=== PATIENT | female | born 1980 | race Caucasian/White ===

== ENCOUNTER 2016-05-24 23:21 | Emergency (ER) | payer BC ==
[2016-05-25] MEDS ORDERED: HYDROmorphone 1 MG/ML 1 ML SYRINGE IM STA (00:47)
[2016-05-25] MEDS ORDERED: KETOROLAC 60 MG/2 ML VIAL IM STA (00:47)
--- NOTE | 2016-05-25 00:50 | ED ---
General Adult HPI - General Chief complaint: Extremity Problem,Nontraumatic Stated complaint: Shoulder Pain Time Seen by Provider: 05/25/16 00:10 Source: patient, RN notes reviewed Mode of arrival: ambulatory Limitations: no limitations - History of Present Illness Initial comments: Patient is a pleasant 35-year-old female presenting to the emergency department complaining of left shoulder discomfort. Onset was around 2 or 3 weeks ago. Patient awoke with symptoms. Patient states symptoms have gotten worse the past day or 2. Discomfort greatly increases with movement. Discomfort is the left posterior shoulder, more specifically the region between the neck in the shoulder. No chest pain. No difficulty in breathing. No trauma. No history of chronic discomfort in this area. - Related Data Home Medications Medication Instructions Recorded Confirmed Phentermine HCl [Adipex-P] 37.5 mg PO QAM 04/19/16 05/24/16 Previous Rx's Medication Instructions Recorded Dexamethasone 0.75 mg PO DIRECTED #12 tab 04/19/16 Hydrocodone/Acetaminophen [[place] 2 each PO Q6HR PRN #20 tab 05/25/16 5-325] Ibuprofen [Motrin] 600 mg PO Q6HR PRN #20 tab 05/25/16 methylPREDNISolone Dose Pack 24 mg PO DAILY #1 tab 05/25/16 [Medrol Dose Pack] Allergies Allergy/AdvReac Type Severity Reaction Status Date / Time No Known Allergies Allergy Verified 05/24/16 23:37 Review of Systems ROS Statement: Those systems with pertinent positive or pertinent negative responses have been documented in the HPI. ROS Other: All systems not noted in ROS Statement are negative. Constitutional: Denies: fever Eyes: Denies: eye pain ENT: Denies: ear pain Respiratory: Denies: cough, dyspnea Cardiovascular: Denies: chest pain Endocrine: Denies: fatigue Gastrointestinal: Denies: abdominal pain Genitourinary: Denies: dysuria Musculoskeletal: Reports: back pain (Left trapezius) Skin: Denies: rash Neurological: Denies: weakness Past Medical History Past Medical History: Asthma History of Any Multi-Drug Resistant Organisms: None Reported Past Surgical History: Section, Tubal Ligation Past Anesthesia/Blood Transfusion Reactions: No Reported Reaction Past Psychological History: Depression Smoking Status: Current every day smoker Past Alcohol Use History: Occasional Past Drug Use History: None Reported General Exam Limitations: no limitations General appearance: alert, in no apparent distress Head exam: Present: atraumatic Eye exam: Present: normal appearance, PERRL ENT exam: Present: normal oropharynx Neck exam: Present: normal inspection. Absent: tenderness Respiratory exam: Present: normal lung sounds bilaterally Cardiovascular Exam: Present: regular rate, normal rhythm Expanded Peripheral pulses: 2+: Radial (R), Radial (L), Posterior Tibialis (R), Posterior Tibialis (L) GI/Abdominal exam: Present: soft. Absent: tenderness Extremities exam: Present: normal inspection, full ROM, other (No pain with passive range of motion. Significant pain with active range of motion of the left shoulder.). Absent: tenderness Back exam: Present: tenderness (Tenderness and fullness left trapezius region) Neurological exam: Present: alert. Absent: motor sensory deficit Psychiatric exam: Present: normal affect, normal mood Skin exam: Absent: rash Course Vital Signs 05/24/16 05/25/16 23:33 00:18 Temperature 99.8 F H Pulse Rate 89 80 Respiratory 16 18 Rate Blood Pressure 144/84 131/76 O2 Sat by Pulse 99 98 Oximetry EKG Findings - EKG Comments: EKG Findings:: Normal sinus rhythm 71. Normal intervals. Normal axis. Normal QRS. Normal ST-T. Medical Decision Making - Medical Decision Making Patient reexamined and resting comfortably at bedside. Patient states discomfort has improved, discomfort is now 5/10. Patient does have some nausea. Case was discussed in detail with Dr. Zeng with orthopedics will follow-up with the patient on Thursday. Patient and family are updated. He also recommended steroids. - Radiology Data Radiology results: report reviewed (Computed tomography scan shows C4 5 and C5 6 disc herniation with mild impingement on the spinal canal. There may be some neural foraminal impingement.) Disposition Clinical Impression: Cervical disc herniation Disposition: HOME SELF-CARE Condition: Stable Instructions: Cervical Disc Herniation (ED) Additional Instructions: Please follow-up with Dr. Zeng on Thursday. Return for weakness, loss of sensation, increased pain, worsening symptoms or other concerns. Prescriptions: Hydrocodone/Acetaminophen [[place] 5-325] 2 each PO Q6HR PRN #20 tab PRN Reason: Pain Ibuprofen [Motrin] 600 mg PO Q6HR PRN #20 tab PRN Reason: Pain methylPREDNISolone Dose Pack [Medrol Dose Pack] 24 mg PO DAILY #1 tab Referrals: Sara King MD [Primary Care Provider] - 1-2 days Reji Zeng DO [Doctor of Osteopathic Medicine] - 1-2 days
--- NOTE | 2016-05-25 01:28 | XR ---
EXAMINATION TYPE: XR chest 2V DATE OF EXAM: 05/25/2016 1:20 AM COMPARISON: 09/07/2012 HISTORY: Neck pain and shoulder pain. TECHNIQUE: Frontal and lateral views of the chest are obtained. FINDINGS: Heart and mediastinum are normal. Lungs are clear. The diaphragm is normal. Bony thorax an d soft tissues appear normal. IMPRESSION: Normal chest. No change.
--- NOTE | 2016-05-25 01:39 | CT ---
EXAMINATION TYPE: CT cervical spine wo con DATE OF EXAM: 05/25/2016 1:20 AM COMPARISON: NONE HISTORY: left neck pain CT DLP: 431.90 mGycm Automated exposure control for dose reduction was used. TECHNIQUE: CT scan of the cervical spine is obtained without contrast, axial images are obtained, sa gittal and coronal reformatted images are also reviewed. FINDINGS: The cervical vertebra have fairly normal alignment. There is mild spurring of the endplates from C4 t o C7. Facet joints are intact. Skull base is intact. There is no evidence of a fracture. Posterior el ements are intact. There is posterior central and left-sided C4-5 and C5-6 disc herniation. IMPRESSION: No fracture. Mild degenerative disc hypertrophic spurring. There is a posterior C4-5 cervical disc herniation with mild impingement on the spinal canal. This projects slightly to the left side on the axial images and may be clinically significant. There is probably some neural foraminal impingement. There is similar significant posterior left-sided C5-6 cervical disc herniation with neural foraminal impingement. MR scan is recommended for confirmation if clinically indicated.
[2016-05-25] MEDS ORDERED: ONDANSETRON 4 MG ODT STARTER PACK 2 TAB BTL PO STA (02:14)
[2016-05-25] MEDS ORDERED: predniSONE 50 MG TAB PO STA (02:17)
[2016-05-25 03:41] VITALS: BP 120/78; PULSE 88; RESP 20; TEMP 98
== END 2016-05-25 02:38 | disposition home or self-care (01) ==
LOC: EC 23:21
DX: M50.01 Cervical disc disorder with myelopathy, high cervical region (principal); F17.200 Nicotine dependence, unspecified, uncomplicated; Z79.52 Long term (current) use of systemic steroids; Z79.899 Other long term (current) drug therapy
CPT/HCPCS: 99284; 96372 ×2; 71020; 72125; J1885; J1170

== ENCOUNTER 2016-06-20 15:53 | Emergency (ER) | payer BC ==
[2016-06-20] MEDS ORDERED: KETOROLAC 60 MG/2 ML VIAL IM STA (16:24)
[2016-06-20] MEDS ORDERED: ORPHENADRINE 30 MG/ML 2 ML VIAL IM STA (16:24)
--- NOTE | 2016-06-20 16:24 | ED ---
General Adult HPI - General Chief complaint: Headache Stated complaint: Shoulder Pain (Left) Time Seen by Provider: 06/20/16 16:08 Source: patient, RN notes reviewed Mode of arrival: ambulatory Limitations: no limitations - History of Present Illness Initial comments: Patient is a 35-year-old female presents to the emergency room for evaluation of left shoulder pain. Patient states that she has been having the shoulder pain on and off for the past 2 months. Patient states she was here about a month ago and was told that she had a herniated disc in her cervical spine. Patient states she was supposed follow-up with Dr. Zeng but never did. Patient states the pain did go away for a few weeks but then came back the past few days and has gotten worse over the past day. Patient states the pain radiates on the left side of her neck up to the base of her skull causing her to have a headache. Patient denies changes in vision. Patient states that a decrease in appetite but denies nausea. Patient states she feels slightly dizzy. Patient denies any fall or recent injury to her shoulder or neck. Patient states she's having some tingling in her left arm. Patient denies shortness of breath. Patient states that is 7 out of 10 constant throbbing pain is worse with movement. Patient states been taking ibuprofen with no relief of symptoms. 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 Patient states her new job has been aggravating her pain. - Related Data Home Medications Medication Instructions Recorded Confirmed Albuterol Inhaler [Ventolin Hfa 1 - 2 puff INHALATION RT-Q6H PRN 06/20/16 Inhaler] Ibuprofen [Motrin] 200 - 400 mg PO Q6HR PRN 06/20/16 06/20/16 Previous Rx's Medication Instructions Recorded Ibuprofen [Motrin] 800 mg PO Q6HR PRN #20 tab 06/20/16 Orphenadrine [Norflex] 100 mg PO Q12H PRN #12 tablet.er 06/20/16 Allergies Allergy/AdvReac Type Severity Reaction Status Date / Time No Known Allergies Allergy Verified 06/20/16 16:42 Review of Systems ROS Statement: Those systems with pertinent positive or pertinent negative responses have been documented in the HPI. ROS Other: All systems not noted in ROS Statement are negative. Past Medical History Past Medical History: Asthma History of Any Multi-Drug Resistant Organisms: None Reported Past Surgical History: Section, Tubal Ligation Past Anesthesia/Blood Transfusion Reactions: No Reported Reaction Past Psychological History: Depression Smoking Status: Current every day smoker Past Alcohol Use History: None Reported Past Drug Use History: None Reported General Exam - General Exam Comments Initial Comments: Sitting in exam room in no acute distress. Limitations: no limitations General appearance: alert, in no apparent distress Head exam: Present: atraumatic, normocephalic, normal inspection Eye exam: Present: normal appearance ENT exam: Present: normal exam Neck exam: Present: normal inspection, tenderness (Left paracervical tenderness on palpation), full ROM Respiratory exam: Present: normal lung sounds bilaterally. Absent: respiratory distress Cardiovascular Exam: Present: regular rate, normal rhythm, normal heart sounds Left Shoulder Exam: Present: full ROM, tenderness (Posterior shoulder). Absent: swelling, ecchymosis, deformity Neuro motor exam: Present: wrist extension intact, thumb opposition intact, thumb IP flexion intact, thumb adduction intact, fingers 2-5 abduction intact Vascular: Present: normal capillary refill (Capillary refill less than 2 seconds ), radial pulse (2+), ulnar pulse (2+) Back exam: Present: normal inspection Neurological exam: Present: alert, oriented X3, CN II-XII intact, normal gait Psychiatric exam: Present: normal affect, normal mood Skin exam: Present: warm, dry, intact, normal color. Absent: rash Course Vital Signs 06/20/16 15:56 Temperature 98.8 F Pulse Rate 78 Respiratory 18 Rate Blood Pressure 187/84 O2 Sat by Pulse 98 Oximetry EKG Findings - EKG Comments: EKG Findings:: Normal sinus rhythm, ventricular rate 60 bpm, HI interval 120 ms , QRS duration 84 ms, QT/QTc 436/436 ms, no ST elevations Medical Decision Making - Medical Decision Making Patient a 35-year-old female presents emergency room for evaluation of left- sided neck and shoulder pain. Please see the pain does radiate to her chest. EKG shows no acute findings. Patient denies any shortness of breath. Patient' s symptoms related to herniated disc noted on computed tomography scan in April. Will place patient on ibuprofen and muscle relaxers and have her follow-up with Dr. Zeng. Patient states she understands everything that was discussed with her. Return parameters discussed. Case discussed with Dr. Betancourt. Disposition Clinical Impression: Cervical disc herniation Disposition: HOME SELF-CARE Condition: Good Additional Instructions: Please follow-up with Dr. Zeng. Take medications as needed. If any new symptom arises or symptoms worsen, return to ER as soon as possible. Prescriptions: Ibuprofen [Motrin] 800 mg PO Q6HR PRN #20 tab PRN Reason: Pain Orphenadrine [Norflex] 100 mg PO Q12H PRN #12 tablet.er PRN Reason: Pain Referrals: Sara King MD [Primary Care Provider] - 1-2 days Reji Zeng DO [Doctor of Osteopathic Medicine] - 1-2 days Time of Disposition: 16:36
[2016-06-20 17:10] VITALS: BP 145/81; PULSE 75; RESP 16; TEMP 98.1
== END 2016-06-20 17:11 | disposition home or self-care (01) ==
LOC: EC 15:53
DX: M50.20 Other cervical disc displacement, unspecified cervical region (principal); R51 Headache; M25.512 Pain in left shoulder; R42 Dizziness and giddiness; J45.909 Unspecified asthma, uncomplicated; F17.200 Nicotine dependence, unspecified, uncomplicated
CPT/HCPCS: 93005; 99284; 96372 ×2; J2360; J1885

== ENCOUNTER 2016-09-12 22:58 | Emergency (ER) | payer BC ==
[2016-09-12 23:03] VITALS: RESP 18
[2016-09-12 23:37] LABS: Basophils # (A) 0.1 k/uL (0-0.2); Basophils % (A) 1 %; CH 27.1; CHCM 32.1; Eosinophils # (A) 0.3 k/uL (0-0.7); Eosinophils % (A) 3 %; HCT 37.7 % (34.0-46.0); HDW 2.49; HGB 12.3 gm/dL (11.4-16.0); Luc # (Auto) 0.25; Luc % (Auto) 2; Lymphocytes # (A) 2.9 k/uL (1.0-4.8); Lymphocytes % (A) 22 %; MCH 27.5 pg (25.0-35.0); MCHC 32.5 g/dL (31.0-37.0); MCV 84.6 fL (80.0-100.0); Mean Platelet Volume 7.8; Monocytes # (A) 0.7 k/uL (0-1.0); Monocytes % (A) 5 %; Neutrophils # (A) 8.9 k/uL (1.3-7.7); Neutrophils % (A) 68 %; RBC 4.46 m/uL (3.80-5.40); RDW 15.7 % (11.5-15.5); WBC 13.1 k/uL (3.8-10.6); WBC (Perox) 13.47
[2016-09-12 23:43] LABS: Appearance,Urine Clear (Clear); Bilirubin,Urine Negative (Negative); Glucose,Urine (UA) Negative (Negative); Ketones,Urine Negative (Negative); Leukocyte Esterase,Urine Negative (Negative); Nitrite,Urine Negative (Negative); PH, Urine 5.5 (5.0-8.0); Protein,Urine Negative (Negative); Specific Gravity,Urine 1.017 (1.001-1.035); UA Billing (MACRO vs. MICRO) CHEM; Urobilinogen,Urine <2.0 mg/dL (<2.0)
[2016-09-12 23:48] LABS: ALT 24 U/L (9-52); AST 17 U/L (14-36); Alkaline Phosphatase 38 U/L (38-126); Amylase 39 U/L (30-110); Anion Gap 10 mmol/L; Blood Urea Nitrogen 10 mg/dL (7-17); Calcium 9.3 mg/dL (8.4-10.2); Carbon Dioxide 26 mmol/L (22-30); Chloride 104 mmol/L (98-107); Glucose 74 mg/dL (74-99); Non-African American GFR(MDRD) >60 (>60 ml/min/1.73 sqM); Potassium 3.5 mmol/L (3.5-5.1); Sodium 140 mmol/L (137-145); Total Bilirubin 0.4 mg/dL (0.2-1.3); Total Protein 7.2 g/dL (6.3-8.2)
--- NOTE | 2016-09-12 23:56 | XR ---
EXAM: XR Abdomen, 1 View CLINICAL HISTORY: Reason: abdominal pain TECHNIQUE: Frontal supine view of the abdomen/pelvis. COMPARISON: CT abdomen/pelvis on 01/11/2016 FINDINGS: Abdomen: Nonobstructive bowel gas pattern. No free air. Cholecystectomy clips in the right upper quadrant. Pelvis is not included in the [id number]. Bones: Normal. Soft tissues: Normal. Lower chest: Normal. IMPRESSION: No acute disease.
[2016-09-13] MEDS ORDERED: MORPHINE SULFATE 4 MG/ML SYRINGE IV STA (01:31)
[2016-09-13] MEDS ORDERED: ONDANSETRON 4 MG/2 ML VIAL IVP STA (01:32)
--- NOTE | 2016-09-13 01:58 | CT ---
EXAM: CT Abdomen and Pelvis Without Intravenous Contrast CLINICAL HISTORY: Reason: Patient presents with abdominal pain. Prior on pacs history of cholecystectomy. TECHNIQUE: Axial computed tomography images of the abdomen and pelvis without intravenous contrast. CTDI is 12.0 mGy and DLP is 538.40 mGy-cm This CT exam was performed using one or more of the following dose reduction techniques: automated exposure control, adjustment of the mA and/or kV according to patient size, and/or use of iterative reconstruction technique. COMPARISON: CT abdomen/pelvis on 01/11/2016 FINDINGS: Evaluation of solid organs somewhat limited without IV contrast. Liver: No focal lesion. Spleen: No focal lesion. Gallbladder: Status post cholecystectomy. Pancreas: No mass. Adrenal glands: No mass. Kidneys: No hydronephrosis or stone. Bowel: Normal appendix. No bowel obstruction or inflammation. Urinary bladder: No wall thickening or mass. Reproductive organs: Unremarkable. Muscles: No mass. Subcutaneous tissues: Small fat-containing periumbilical hernia. Peritoneal space: No free fluid. Phleboliths in the pelvis. Lymph nodes: No lymphadenopathy. Vessels: No aneurysm. Bones: Normal. No acute fracture or bony lesion. Lung bases: Normal. IMPRESSION: No acute abnormality in the abdomen or pelvis. Small fat-containing periumbilical hernia.
--- NOTE | 2016-09-13 02:06 | ED ---
Abdominal Pain HPI - General Chief Complaint: Abdominal Pain Stated Complaint: abdominal Pain Time Seen by Provider: 09/12/16 23:19 Source: patient Mode of arrival: ambulatory Limitations: no limitations - Related Data Home Medications Medication Instructions Recorded Confirmed Ibuprofen [Motrin] 400 mg PO BID PRN 06/20/16 09/12/16 Levofloxacin [Levaquin] 500 mg PO HS 09/12/16 09/12/16 Phentermine HCl [Adipex-P] 18.75 mg PO QAM 09/12/16 09/12/16 Zolpidem [Ambien] 10 mg PO HS PRN 09/12/16 09/12/16 Previous Rx's Medication Instructions Recorded Dicyclomine [Bentyl] 20 mg PO QID #15 tablet 09/13/16 Famotidine [Pepcid] 20 mg PO DAILY #14 tablet 09/13/16 Allergies Allergy/AdvReac Type Severity Reaction Status Date / Time No Known Allergies Allergy Verified 09/12/16 23:22 Review of Systems ROS Statement: Those systems with pertinent positive or pertinent negative responses have been documented in the HPI. ROS Other: All systems not noted in ROS Statement are negative. Past Medical History Past Medical History: Asthma History of Any Multi-Drug Resistant Organisms: None Reported Past Surgical History: Section, Tubal Ligation Past Anesthesia/Blood Transfusion Reactions: No Reported Reaction Past Psychological History: Depression Smoking Status: Current every day smoker Past Alcohol Use History: None Reported Past Drug Use History: None Reported General Exam Limitations: no limitations Course Vital Signs 09/12/16 09/13/16 09/13/16 23:01 00:38 01:29 Temperature 99.8 F H 98.6 F 99.2 F Pulse Rate 92 82 83 Respiratory 18 18 18 Rate Blood Pressure 161/86 140/74 153/96 O2 Sat by Pulse 100 99 100 Oximetry Medical Decision Making - Lab Data Result diagrams: 09/12/16 23:14 09/12/16 23:14 Lab Results 09/12/16 09/12/16 09/12/16 Range/Units 23:14 23:14 23:14 WBC 13.1 H (3.8-10.6) k/uL RBC 4.46 (3.80-5.40) m/uL Hgb 12.3 (11.4-16.0) gm/dL Hct 37.7 (34.0-46.0) % MCV 84.6 (80.0-100.0) fL MCH 27.5 (25.0-35.0) pg MCHC 32.5 (31.0-37.0) g/dL RDW 15.7 H (11.5-15.5) % Plt Count 269 (150-450) k/uL Neutrophils % 68 % Lymphocytes % 22 % Monocytes % 5 % Eosinophils % 3 % Basophils % 1 % Neutrophils # 8.9 H (1.3-7.7) k/uL Lymphocytes # 2.9 (1.0-4.8) k/uL Monocytes # 0.7 (0-1.0) k/uL Eosinophils # 0.3 (0-0.7) k/uL Basophils # 0.1 (0-0.2) k/uL Sodium 140 (137-145) mmol/L Potassium 3.5 (3.5-5.1) mmol/L Chloride 104 (98-107) mmol/L Carbon Dioxide 26 (22-30) mmol/L Anion Gap 10 mmol/L BUN 10 (7-17) mg/dL Creatinine 0.90 (0.52-1.04) mg/dL Est GFR (MDRD) Af Amer >60 (>60 ml/min/1.73 sqM) Est GFR (MDRD) Non-Af >60 (>60 ml/min/1.73 sqM) Glucose 74 (74-99) mg/dL Calcium 9.3 (8.4-10.2) mg/dL Total Bilirubin 0.4 (0.2-1.3) mg/dL AST 17 (14-36) U/L ALT 24 (9-52) U/L Alkaline Phosphatase 38 (38-126) U/L Total Protein 7.2 (6.3-8.2) g/dL Albumin 4.3 (3.5-5.0) g/dL Amylase 39 (30-110) U/L Lipase 37 (23-300) U/L Urine Color Urine Appearance (Clear) Urine pH (5.0-8.0) Ur Specific [place] (1.001-1.035) Urine Protein (Negative) Urine Glucose (UA) (Negative) Urine Ketones (Negative) Urine Blood (Negative) Urine Nitrite (Negative) Urine Bilirubin (Negative) Urine Urobilinogen (<2.0) mg/dL Ur Leukocyte Esterase (Negative) Urine HCG, Qual Not Detected (Not Detectd) 09/12/16 Range/Units 23:14 WBC (3.8-10.6) k/uL RBC (3.80-5.40) m/uL Hgb (11.4-16.0) gm/dL Hct (34.0-46.0) % MCV (80.0-100.0) fL MCH (25.0-35.0) pg MCHC (31.0-37.0) g/dL RDW (11.5-15.5) % Plt Count (150-450) k/uL Neutrophils % % Lymphocytes % % Monocytes % % Eosinophils % % Basophils % % Neutrophils # (1.3-7.7) k/uL Lymphocytes # (1.0-4.8) k/uL Monocytes # (0-1.0) k/uL Eosinophils # (0-0.7) k/uL Basophils # (0-0.2) k/uL Sodium (137-145) mmol/L Potassium (3.5-5.1) mmol/L Chloride (98-107) mmol/L Carbon Dioxide (22-30) mmol/L Anion Gap mmol/L BUN (7-17) mg/dL Creatinine (0.52-1.04) mg/dL Est GFR (MDRD) Af Amer (>60 ml/min/1.73 sqM) Est GFR (MDRD) Non-Af (>60 ml/min/1.73 sqM) Glucose (74-99) mg/dL Calcium (8.4-10.2) mg/dL Total Bilirubin (0.2-1.3) mg/dL AST (14-36) U/L ALT (9-52) U/L Alkaline Phosphatase (38-126) U/L Total Protein (6.3-8.2) g/dL Albumin (3.5-5.0) g/dL Amylase (30-110) U/L Lipase (23-300) U/L Urine Color Yellow Urine Appearance Clear (Clear) Urine pH 5.5 (5.0-8.0) Ur Specific [place] 1.017 (1.001-1.035) Urine Protein Negative (Negative) Urine Glucose (UA) Negative (Negative) Urine Ketones Negative (Negative) Urine Blood Negative (Negative) Urine Nitrite Negative (Negative) Urine Bilirubin Negative (Negative) Urine Urobilinogen <2.0 (<2.0) mg/dL Ur Leukocyte Esterase Negative (Negative) Urine HCG, Qual (Not Detectd) Disposition Clinical Impression: Abdominal pain Disposition: HOME SELF-CARE Condition: Good Instructions: Abdominal Pain (ED) Prescriptions: Dicyclomine [Bentyl] 20 mg PO QID #15 tablet Famotidine [Pepcid] 20 mg PO DAILY #14 tablet Referrals: Sara King MD [Primary Care Provider] - 1-2 days Ileana Butler MD [STAFF PHYSICIAN] - 1-2 days
[2016-09-13 03:05] VITALS: BP 140/76; PULSE 90; TEMP 98.3
== END 2016-09-13 03:08 | disposition home or self-care (01) ==
LOC: EC 22:58
DX: R10.9 Unspecified abdominal pain (principal); F17.200 Nicotine dependence, unspecified, uncomplicated; Z79.899 Other long term (current) drug therapy
CPT/HCPCS: 99284; 96374; 96375; 36415; 80053; 82150; 83690; 85025; 81003; 81025; 87086; 74000; 74176; J2270; J2405

== ENCOUNTER 2017-08-03 16:51 | Emergency (ER) | payer BC ==
[2017-08-03 17:07] VITALS: BP 130/99; PULSE 86; RESP 18; TEMP 98.6
--- NOTE | 2017-08-03 17:32 | XR ---
EXAMINATION TYPE: XR foot complete LT DATE OF EXAM: 08/03/2017 COMPARISON: NONE HISTORY: Foot pain TECHNIQUE: 3 views FINDINGS: There is a large plantar calcaneal spur. Metatarsals are intact. I see no fracture nor disl ocation. There are no erosions. IMPRESSION: Calcaneal spurring. No fracture seen.
--- NOTE | 2017-08-03 17:32 | ED ---
General Adult HPI - General Chief complaint: Extremity Injury, Lower Stated complaint: Foot Injury Time Seen by Provider: 08/03/17 17:11 Source: patient, RN notes reviewed Mode of arrival: ambulatory Limitations: no limitations - History of Present Illness Initial comments: 36-year-old female presents for left foot pain. Patient states she dropped a [place] oven on her foot and now she has pain at the top of the foot. She states that she can ambulate and pressured does make the pain worse. She states that' ll shoot up the leg. She denies any other injury at this time. Her pain is moderate. She denies any other injury.Patient denies any recent fever, chills, shortness of breath, chest pain, back pain, abdominal pain, nausea vomiting, numbness or tingling, dysuria or hematuria, constipation or diarrhea, headaches or visual changes, or any other current symptoms. - Related Data Home Medications Medication Instructions Recorded Confirmed Albuterol Inhaler [Ventolin Hfa 2 puff INHALATION RT-Q6H PRN 08/03/17 08/03/17 Inhaler] Ibuprofen [Motrin Ib] 400 mg PO Q6HR PRN 08/03/17 08/03/17 Previous Rx's Medication Instructions Recorded Ibuprofen [Motrin] 600 mg PO Q6HR PRN #20 tab 08/03/17 Allergies Allergy/AdvReac Type Severity Reaction Status Date / Time No Known Allergies Allergy Verified 08/03/17 17:29 Review of Systems ROS Statement: Those systems with pertinent positive or pertinent negative responses have been documented in the HPI. ROS Other: All systems not noted in ROS Statement are negative. Past Medical History Past Medical History: Asthma History of Any Multi-Drug Resistant Organisms: None Reported Past Surgical History: Section, Tubal Ligation Past Anesthesia/Blood Transfusion Reactions: No Reported Reaction Past Psychological History: Depression Smoking Status: Current every day smoker Past Alcohol Use History: None Reported Past Drug Use History: None Reported General Exam - General Exam Comments Initial Comments: General: The patient is awake and alert, in no distress, and does not appear acutely ill. Neck: The neck is supple, there is no tenderness. Cardiovascular: There is a regular rate and rhythm. No murmur, rub or gallop is appreciated. Respiratory: Lungs are clear to auscultation, respirations are non-labored, breath sounds are equal. No wheezes, stridor, rales, or rhonchi. Musculoskeletal: Sensation intact with 2+ pulses of left lower extremity. Full range of motion of left ankle left foot with some tenderness along the top of the foot. No ecchymosis or deformity noted. Less than 2 capillary refill. Neurological: CN II-XII intact, There are no obvious motor or sensory deficits. Coordination appears grossly intact. Speech is normal. Skin: Skin is warm and dry and no rashes or lesions are noted. Psychiatric: Normal mood and affect. Limitations: no limitations Course Vital Signs 08/03/17 17:04 Temperature 98.6 F Pulse Rate 86 Respiratory 18 Rate Blood Pressure 130/99 O2 Sat by Pulse 95 Oximetry Medical Decision Making - Medical Decision Making 36-year-old female presents for left foot pain. This time x-rays reviewed and negative and it does appear that she is left foot contusion. This time we discussed Motrin and Tylenol. We discussed return parameters and follow-up and all questions. Patient stated that she understood and she is agreement this plan. All questions have been answered. She will be discharged. - Radiology Data Radiology results: report reviewed, image reviewed Disposition Clinical Impression: Contusion of left foot, initial encounter Disposition: HOME SELF-CARE Condition: Stable Instructions: Foot Contusion (ED) Additional Instructions: Please use medication as discussed. Please follow up with family doctor if symptoms have not improved over the next two days. Please return to the emergency room if your symptoms increase or worsen or for any other concerns. Prescriptions: Ibuprofen [Motrin] 600 mg PO Q6HR PRN #20 tab PRN Reason: Pain Referrals: Sara King MD [Primary Care Provider] - 1-2 days Time of Disposition: 17:33
== END 2017-08-03 17:55 | disposition home or self-care (01) ==
LOC: EC 16:51
DX: S90.32XA Contusion of left foot, initial encounter (principal); F17.200 Nicotine dependence, unspecified, uncomplicated; W20.8XXA Other cause of strike by thrown, projected or falling object, initial encounter
CPT/HCPCS: 99283

== ENCOUNTER 2017-11-24 21:33 | Emergency (ER) | payer BC ==
[2017-11-24 21:59] VITALS: BP 154/72; PULSE 72; RESP 18; TEMP 98.4
[2017-11-24] MEDS ORDERED: KETOROLAC 60 MG/2 ML VIAL IM STA (22:54)
--- NOTE | 2017-11-24 22:57 | ED ---
General Adult HPI - General Chief complaint: Chest Pain Stated complaint: chest pain Time Seen by Provider: 11/24/17 21:55 Source: patient, RN notes reviewed Mode of arrival: ambulatory Limitations: no limitations - History of Present Illness Initial comments: 37-year-old female presents emergency Department complaining of central chest pain. Patient states been ongoing for 3 days is been constant over the last 3 days. Patient states if she doesn't move it doesn't hurt but if she moves her arms or takes a deep breath it hurts in the center of her chest. Patient states she's been doing a lot of lifting of a child lately that she normally doesn't do he states that may have made her sore there. Patient also states her left trapezius muscle is somewhat sore to palpation. Patient states again moving that shoulder hurts at trapezius muscle. Patient denies any difficulty breathing or shortness of breath patient denies any diaphoresis. Patient denies any nausea vomiting. Patient denies any recent fever chills or cough. Patient denies any abdominal pain. Patient denies any known injury to that area. Patient denies any similar symptoms in the past. Again patient states if she doesn't move and doesn't take a deep breath it doesn't hurt. - Related Data Home Medications Medication Instructions Recorded Confirmed Ibuprofen [Motrin Ib] 400 mg PO Q6HR PRN 08/03/17 11/24/17 Acetaminophen Tab [Tylenol Tab] 650 mg PO ONCE PRN 11/24/17 11/24/17 Allergies Allergy/AdvReac Type Severity Reaction Status Date / Time No Known Allergies Allergy Verified 11/24/17 22:09 Review of Systems ROS Statement: Those systems with pertinent positive or pertinent negative responses have been documented in the HPI. ROS Other: All systems not noted in ROS Statement are negative. Past Medical History Past Medical History: Asthma History of Any Multi-Drug Resistant Organisms: None Reported Past Surgical History: Section, Tubal Ligation Past Anesthesia/Blood Transfusion Reactions: No Reported Reaction Past Psychological History: Depression Smoking Status: Current every day smoker Past Alcohol Use History: None Reported Past Drug Use History: None Reported General Exam - General Exam Comments Initial Comments: GENERAL: Patient is well-developed and well-nourished. Patient is nontoxic and well- hydrated and is in mild distress. ENT: Neck is soft and supple. No significant lymphadenopathy is noted. Oropharynx is clear. Moist mucous membranes. Neck has full range of motion without eliciting any pain. EYES: The sclera were anicteric and conjunctiva were pink and moist. Extraocular movements were intact and pupils were equal round and reactive to light. Eyelids were unremarkable. PULMONARY: Unlabored respirations. Good breath sounds bilaterally. No audible rales rhonchi or wheezing was noted. CARDIOVASCULAR: There is a regular rate and rhythm without any murmurs gallops or rubs. Chest pain is reproducible. ABDOMEN: Soft and nontender with normal bowel sounds. SKIN: Skin is clear with no lesions or rashes and otherwise unremarkable. NEUROLOGIC: Patient is alert and oriented x3. Cranial nerves II through XII are grossly intact. Motor and sensory are also intact. Normal speech, volume and content. Symmetrical smile. MUSCULOSKELETAL: Normal extremities with adequate strength and full range of motion. No lower extremity swelling or edema. No calf tenderness. Left trapezius is somewhat tender to palpation. LYMPHATICS: No significant lymphadenopathy is noted PSYCHIATRIC: Normal psychiatric evaluation. Limitations: no limitations Course Vital Signs 11/24/17 21:54 Temperature 98.4 F Pulse Rate 72 Respiratory 18 Rate Blood Pressure 154/72 O2 Sat by Pulse 99 Oximetry Disposition Referrals: Sara King MD [Primary Care Provider] - 1-2 days
--- NOTE | 2017-11-25 04:35 | XR ---
EXAM: XR Chest, 2 Views CLINICAL HISTORY: CHEST PAIN. H/O ASTHMA. DENIES PG(TUBAL) TECHNIQUE: Frontal and lateral views of the chest. COMPARISON: 05/25/2016 FINDINGS: Lungs: No focal airspace disease. The pulmonary vascular structures normal. Pleural space: No pleural effusion. No pneumothorax. Heart: Unremarkable. No cardiomegaly. Mediastinum: The trachea is midline. Bones/joints: Unremarkable. IMPRESSION: No focal airspace disease or acute cardiopulmonary process.
== END 2017-11-25 00:30 | disposition home or self-care (01) ==
LOC: EC 21:33
DX: R07.89 Other chest pain (principal); F17.200 Nicotine dependence, unspecified, uncomplicated; Z98.51 Tubal ligation status
CPT/HCPCS: 71046; 99285; 96372; J1885

== ENCOUNTER 2018-09-15 15:29 | Emergency (ER) | payer BC ==
[2018-09-15] MEDS ORDERED: KETOROLAC 30 MG/ML 1 ML VIAL IVP STA (16:00)
[2018-09-15] MEDS ORDERED: SODIUM CHLORIDE 0.9% 1,000 ML IV STA (16:00)
--- NOTE | 2018-09-15 16:33 | ED ---
General Adult HPI - General Chief complaint: Urogenital Stated complaint: HEMATURIA Time Seen by Provider: 09/15/18 15:50 Source: patient, RN notes reviewed Mode of arrival: ambulatory Limitations: no limitations - History of Present Illness Initial comments: 37-year-old female presents emergency Department chief complaint abdominal, flank pain. Patient states that she's had some pain in the flank region for a while states in the last 40 she developed dysuria, hematuria, is not feeling well. Patient found to have fever. Patient states that she's had a prior section and tubal ligation. Patient denies any chance . Last mental cycle approximately 2 weeks ago. Patient denies any chest pain or shortness of breath nothing makes the pain feel better or worse. - Related Data Home Medications Medication Instructions Recorded Confirmed Ibuprofen [Motrin Ib] 400 mg PO Q6HR PRN 08/03/17 09/15/18 Acetaminophen/Pamabrom [Midol 2 tab PO Q6H PRN 09/15/18 09/15/18 Caplet] Phentermine HCl [Adipex-P] 37.5 mg PO DAILY PRN 09/15/18 09/15/18 Previous Rx's Medication Instructions Recorded Sulfamethox-Tmp 800-160Mg [Bactrim 1 each PO Q12HR #14 tab 09/15/18 Ds] Allergies Allergy/AdvReac Type Severity Reaction Status Date / Time morphine Allergy Unknown Verified 09/15/18 16:18 Review of Systems ROS Statement: Those systems with pertinent positive or pertinent negative responses have been documented in the HPI. ROS Other: All systems not noted in ROS Statement are negative. Past Medical History Past Medical History: Asthma History of Any Multi-Drug Resistant Organisms: None Reported Past Surgical History: Section, Tubal Ligation Past Anesthesia/Blood Transfusion Reactions: No Reported Reaction Past Psychological History: Depression Smoking Status: Current every day smoker Past Alcohol Use History: None Reported Past Drug Use History: None Reported General Exam Limitations: no limitations General appearance: alert, in no apparent distress Head exam: Present: atraumatic, normocephalic, normal inspection Neck exam: Present: normal inspection. Absent: tenderness, meningismus, lymphadenopathy Respiratory exam: Present: normal lung sounds bilaterally. Absent: respiratory distress, wheezes, rales, rhonchi, stridor Cardiovascular Exam: Present: regular rate, normal rhythm, normal heart sounds. Absent: systolic murmur, diastolic murmur, rubs, gallop, clicks GI/Abdominal exam: Present: soft, tenderness (Mild suprapubic, left flank tenderness), normal bowel sounds. Absent: distended, guarding, rebound, rigid Course Vital Signs 09/15/18 15:47 Temperature 99.8 F H Pulse Rate 80 Respiratory 16 Rate Blood Pressure 146/94 O2 Sat by Pulse 98 Oximetry Medical Decision Making - Medical Decision Making 29-year-old female presented for hematuria. Patient lab work, CT of abdomen and pelvis to rule out evidence of stone on mass. Patient does have no stone or mass evidence of urinary tract infection will be treated with antibiotics return parameters were discussed. - Lab Data Result diagrams: 09/15/18 16:25 09/15/18 16:25 Lab Results 09/15/18 09/15/18 09/15/18 Range/Units 16:25 16:25 16:25 WBC 11.7 H (3.8-10.6) k/uL RBC 4.15 (3.80-5.40) m/uL Hgb 12.0 (11.4-16.0) gm/dL Hct 36.0 (34.0-46.0) % MCV 86.7 (80.0-100.0) fL MCH 28.9 (25.0-35.0) pg MCHC 33.4 (31.0-37.0) g/dL RDW 16.3 H (11.5-15.5) % Plt Count 243 (150-450) k/uL Neutrophils % 72 % Lymphocytes % 20 % Monocytes % 4 % Eosinophils % 3 % Basophils % 1 % Neutrophils # 8.4 H (1.3-7.7) k/uL Lymphocytes # 2.3 (1.0-4.8) k/uL Monocytes # 0.5 (0-1.0) k/uL Eosinophils # 0.3 (0-0.7) k/uL Basophils # 0.1 (0-0.2) k/uL Anisocytosis Slight Sodium 140 (137-145) mmol/L Potassium 3.7 (3.5-5.1) mmol/L Chloride 111 H (98-107) mmol/L Carbon Dioxide 22 (22-30) mmol/L Anion Gap 7 mmol/L BUN 9 (7-17) mg/dL Creatinine 0.56 (0.52-1.04) mg/dL Est GFR (CKD-EPI)AfAm >90 (>60 ml/min/1.73 sqM) Est GFR (CKD-EPI)NonAf >90 (>60 ml/min/1.73 sqM) Glucose 95 (74-99) mg/dL Plasma Lactic Acid Moi (0.7-2.0) mmol/L Calcium 9.0 (8.4-10.2) mg/dL Total Bilirubin 0.3 (0.2-1.3) mg/dL AST 13 L (14-36) U/L ALT 23 (9-52) U/L Alkaline Phosphatase 37 L (38-126) U/L Total Protein 6.4 (6.3-8.2) g/dL Albumin 3.9 (3.5-5.0) g/dL Amylase 36 (30-110) U/L Lipase 58 (23-300) U/L Urine Color Light Yellow Urine Appearance Clear (Clear) Urine pH 6.0 (5.0-8.0) Ur Specific Gonzales 1.005 (1.001-1.035) Urine Protein Negative (Negative) Urine Glucose (UA) Negative (Negative) Urine Ketones Negative (Negative) Urine Blood Small H (Negative) Urine Nitrite Negative (Negative) Urine Bilirubin Negative (Negative) Urine Urobilinogen <2.0 (<2.0) mg/dL Ur Leukocyte Esterase Negative (Negative) Urine RBC 2 (0-5) /hpf Urine WBC 10 H (0-5) /hpf Ur Squamous Epith Cells 1 (0-4) /hpf Amorphous Sediment Rare H (None) /hpf Urine Bacteria Occasional H (None) /hpf Urine Mucus Rare H (None) /hpf Urine HCG, Qual (Not Detectd) 09/15/18 09/15/18 Range/Units 16:25 16:25 WBC (3.8-10.6) k/uL RBC (3.80-5.40) m/uL Hgb (11.4-16.0) gm/dL Hct (34.0-46.0) % MCV (80.0-100.0) fL MCH (25.0-35.0) pg MCHC (31.0-37.0) g/dL RDW (11.5-15.5) % Plt Count (150-450) k/uL Neutrophils % % Lymphocytes % % Monocytes % % Eosinophils % % Basophils % % Neutrophils # (1.3-7.7) k/uL Lymphocytes # (1.0-4.8) k/uL Monocytes # (0-1.0) k/uL Eosinophils # (0-0.7) k/uL Basophils # (0-0.2) k/uL Anisocytosis Sodium (137-145) mmol/L Potassium (3.5-5.1) mmol/L Chloride (98-107) mmol/L Carbon Dioxide (22-30) mmol/L Anion Gap mmol/L BUN (7-17) mg/dL Creatinine (0.52-1.04) mg/dL Est GFR (CKD-EPI)AfAm (>60 ml/min/1.73 sqM) Est GFR (CKD-EPI)NonAf (>60 ml/min/1.73 sqM) Glucose (74-99) mg/dL Plasma Lactic Acid Moi 0.9 (0.7-2.0) mmol/L Calcium (8.4-10.2) mg/dL Total Bilirubin (0.2-1.3) mg/dL AST (14-36) U/L ALT (9-52) U/L Alkaline Phosphatase (38-126) U/L Total Protein (6.3-8.2) g/dL Albumin (3.5-5.0) g/dL Amylase (30-110) U/L Lipase (23-300) U/L Urine Color Urine Appearance (Clear) Urine pH (5.0-8.0) Ur Specific Gonzales (1.001-1.035) Urine Protein (Negative) Urine Glucose (UA) (Negative) Urine Ketones (Negative) Urine Blood (Negative) Urine Nitrite (Negative) Urine Bilirubin (Negative) Urine Urobilinogen (<2.0) mg/dL Ur Leukocyte Esterase (Negative) Urine RBC (0-5) /hpf Urine WBC (0-5) /hpf Ur Squamous Epith Cells (0-4) /hpf Amorphous Sediment (None) /hpf Urine Bacteria (None) /hpf Urine Mucus (None) /hpf Urine HCG, Qual Not Detected (Not Detectd) Disposition Clinical Impression: Urinary tract infection Disposition: HOME SELF-CARE Condition: Stable Instructions (If sedation given, give patient instructions): Urinary Tract Infection in Women (ED) Additional Instructions: Please return to the Emergency Department if symptoms worsen or any other concerns. Prescriptions: Sulfamethox-Tmp 800-160Mg [Bactrim Ds] 1 each PO Q12HR #14 tab Is patient prescribed a controlled substance at d/c from ED?: No Referrals: Sara King MD [Primary Care Provider] - 1-2 days Time of Disposition: 17:33
[2018-09-15 16:39] LABS: Anisocytosis Slight; Basophils # (A) 0.1 k/uL (0-0.2); Basophils % (A) 1 %; Eosinophils # (A) 0.3 k/uL (0-0.7); Eosinophils % (A) 3 %; Lymphocytes # (A) 2.3 k/uL (1.0-4.8); Lymphocytes % (A) 20 %; MCH 28.9 pg (25.0-35.0); MCHC 33.4 g/dL (31.0-37.0); MCV 86.7 fL (80.0-100.0); Mean Platelet Volume 8.1; Monocytes # (A) 0.5 k/uL (0-1.0); Monocytes % (A) 4 %; Neutrophils # (A) 8.4 k/uL (1.3-7.7); Neutrophils % (A) 72 %; Platelet Count 243 k/uL (150-450); RBC 4.15 m/uL (3.80-5.40); RDW 16.3 % (11.5-15.5); WBC 11.7 k/uL (3.8-10.6)
[2018-09-15 16:49] LABS: ALT 23 U/L (9-52); AST 13 U/L (14-36); Albumin 3.9 g/dL (3.5-5.0); Alkaline Phosphatase 37 U/L (38-126); Amylase 36 U/L (30-110); Anion Gap 7 mmol/L; Blood Urea Nitrogen 9 mg/dL (7-17); Carbon Dioxide 22 mmol/L (22-30); Chloride 111 mmol/L (98-107); Glucose 95 mg/dL (74-99); Lipase 58 U/L (23-300); Potassium 3.7 mmol/L (3.5-5.1); Sodium 140 mmol/L (137-145); Total Bilirubin 0.3 mg/dL (0.2-1.3); Total Protein 6.4 g/dL (6.3-8.2)
--- NOTE | 2018-09-15 17:09 | CT ---
EXAMINATION TYPE: CT abdomen pelvis wo con DATE OF EXAM: 09/15/2018 COMPARISON: 09/13/2016 HISTORY: Left side flank pain and hematuria. CT DLP: 521.5 mGycm Automated exposure control for dose reduction was used. TECHNIQUE: Helical acquisition of images was performed from the lung bases through the pelvis. FINDINGS: Lung bases are clear. There is no pleural effusion. Heart size is normal. There is no pericardial eff usion. Stomach appears normal. Liver spleen pancreas appear normal. Bile ducts are not dilated. There are clips from cholecystectomy. There is no adrenal mass. Kidneys show normal size and contour. There is no hydronephrosis. Ureters a re not dilated. There are phleboliths in the pelvis. There is no retroperitoneal adenopathy. Uterus i s anteverted. There is no inguinal hernia. I see no evidence of a pelvic mass. Appendix appears marek l. I see no evidence of renal calculus. There is no mesenteric edema. There is no ascites or free air. Lumbar spine is intact. I see no bony destructive process. IMPRESSION: NEGATIVE CT SCAN ABDOMEN AND PELVIS. THERE IS APPARENT REDUCTION OF THE UMBILICAL HERNIA COMPARED TO OLD EXAM.
[2018-09-15 17:18] LABS: Amorphous Sediment,Urine Rare /hpf; Appearance,Urine Clear (Clear); Bacteria,Urine Occasional /hpf; Bilirubin,Urine Negative (Negative); Blood,Urine Small (Negative); Color,Urine Light Yellow; Glucose,Urine (UA) Negative (Negative); Ketones,Urine Negative (Negative); Leukocyte Esterase,Urine Negative (Negative); Mucus,Urine Rare /hpf; Nitrite,Urine Negative (Negative); Protein,Urine Negative (Negative); RBC,Urine 2 /hpf (0-5); Specific Gravity,Urine 1.005 (1.001-1.035); Squamous Epithelial Cell,Urine 1 /hpf (0-4); Urobilinogen,Urine <2.0 mg/dL (<2.0)
[2018-09-15] MEDS ORDERED: cefTRIAXone IN SWFI 1,000 MG/10 ML SYRINGE IVP STA (17:32)
[2018-09-15 18:31] VITALS: BP 141/90; PULSE 65; RESP 18; TEMP 98.1
== END 2018-09-15 18:29 | disposition home or self-care (01) ==
LOC: EC 15:29
DX: N39.0 Urinary tract infection, site not specified (principal); F17.200 Nicotine dependence, unspecified, uncomplicated; Z88.5 Allergy status to narcotic agent; Z98.51 Tubal ligation status
CPT/HCPCS: 36415; 80053; 82150; 83605; 83690; 85025; 81001; 81025; 87040; 74176; 99284; 96374; 96375; 96361; J0696; J1885

== ENCOUNTER 2019-08-10 17:39 | Emergency (ER) | payer BC ==
--- NOTE | 2019-08-10 18:32 | ED ---
General Adult HPI - General Chief complaint: ENT Stated complaint: difficulty breathing Time Seen by Provider: 08/10/19 18:12 Source: patient Mode of arrival: ambulatory - History of Present Illness Initial comments: Patient is a 38-year-old female presenting to the emergency room with a chief complaint of sore throat. Patient states she woke up this morning with a sore throat and now her "neck is swollen". Patient denies any difficulty breathing or shortness of breath. Denies any fevers or chills, drooling or difficulty swallowing. States the discomfort is exacerbated when she extends her head. Does report some tenderness inferior to the hyoid bone. Denies taking m edication to alleviate his symptoms. States she was diagnosed with hypothyroidism but has not been taking her medication for several years. States she feels warmer than usual. Does report weight gain. Patient states she is also anxious due to being in a hospital for possible coronavirus exposure - Related Data Home Medications Medication Instructions Recorded Confirmed Ibuprofen [Motrin Ib] 400 mg PO Q6HR PRN 08/03/17 09/15/18 Acetaminophen/Pamabrom [Midol 2 tab PO Q6H PRN 09/15/18 09/15/18 Caplet] Phentermine HCl [Adipex-P] 37.5 mg PO DAILY PRN 09/15/18 09/15/18 Previous Rx's Medication Instructions Recorded Sulfamethox-Tmp 800-160Mg [Bactrim 1 each PO Q12HR #14 tab 09/15/18 Ds] Allergies Allergy/AdvReac Type Severity Reaction Status Date / Time morphine Allergy Unknown Verified 08/10/19 17:45 Review of Systems ROS Statement: Those systems with pertinent positive or pertinent negative responses have been documented in the HPI. ROS Other: All systems not noted in ROS Statement are negative. Past Medical History Past Medical History: Asthma History of Any Multi-Drug Resistant Organisms: None Reported Past Surgical History: Section, Tubal Ligation Past Anesthesia/Blood Transfusion Reactions: No Reported Reaction Past Psychological History: Depression Smoking Status: Current every day smoker Past Alcohol Use History: None Reported Past Drug Use History: None Reported General Exam Limitations: no limitations General appearance: alert, in no apparent distress, anxious Head exam: Present: atraumatic, normocephalic, normal inspection Eye exam: Present: normal appearance, PERRL, EOMI Pupils: Present: normal accommodation ENT exam: Present: normal exam, normal oropharynx (Uvula midline. No tonsillar exudates or enlargement or erythema), mucous membranes moist, TM's normal bilaterally, normal external ear exam Neck exam: Present: normal inspection, tenderness (Tenderness inferior to the hyoid bone), full ROM. Absent: lymphadenopathy Respiratory exam: Present: normal lung sounds bilaterally. Absent: stridor Cardiovascular Exam: Present: regular rate, normal rhythm, normal heart sounds Extremities exam: Present: normal inspection, full ROM Back exam: Present: normal inspection, full ROM Neurological exam: Present: alert, oriented X3 Psychiatric exam: Present: normal affect, normal mood Skin exam: Present: warm, dry, intact, normal color Course Vital Signs 08/10/19 08/10/19 08/10/19 17:43 19:35 21:10 Temperature 98.2 F 98 F Pulse Rate 110 H 80 86 Respiratory 20 18 18 Rate Blood Pressure 164/96 154/91 144/84 O2 Sat by Pulse 98 97 97 Oximetry Medical Decision Making - Medical Decision Making Patient is a 38-year-old female presenting to the emergency department with chief complaint of a sore throat. Examination patient does have tenderness inferior to the hyoid bone. No drooling, dysphasia or odynophagia or dyspnea. Soft tissue neck shows some soft tissue swelling anterior to the thyroid. CT of soft tissue neck was suggested by Dr. Richmond which reveals an enlarged thyroid. Elevated TSH but normal T3 and T4. Ultrasound of the thyroid was advised by radiology on nonemergent basis. Patient advised to follow-up with primary care. Return parameters discussed with patient is [id number]. Case discussed with physician. - Lab Data Result diagrams: 08/10/19 19:37 08/10/19 19:37 Lab Results 08/10/19 08/10/19 Range/Units 19:37 19:37 WBC 10.2 (3.8-10.6) k/uL RBC 4.66 (3.80-5.40) m/uL Hgb 12.0 (11.4-16.0) gm/dL Hct 38.5 (34.0-46.0) % MCV 82.6 (80.0-100.0) fL MCH 25.8 (25.0-35.0) pg MCHC 31.2 (31.0-37.0) g/dL RDW 16.4 H (11.5-15.5) % Plt Count 297 (150-450) k/uL Neutrophils % 62 % Lymphocytes % 24 % Monocytes % 7 % Eosinophils % 4 % Basophils % 1 % Neutrophils # 6.3 (1.3-7.7) k/uL Lymphocytes # 2.5 (1.0-4.8) k/uL Monocytes # 0.7 (0-1.0) k/uL Eosinophils # 0.4 (0-0.7) k/uL Basophils # 0.1 (0-0.2) k/uL Anisocytosis Slight Sodium 139 (137-145) mmol/L Potassium 4.7 (3.5-5.1) mmol/L Chloride 106 (98-107) mmol/L Carbon Dioxide 26 (22-30) mmol/L Anion Gap 7 mmol/L BUN 10 (7-17) mg/dL Creatinine 0.63 (0.52-1.04) mg/dL Est GFR (CKD-EPI)AfAm >90 (>60 ml/min/1.73 sqM) Est GFR (CKD-EPI)NonAf >90 (>60 ml/min/1.73 sqM) Glucose 99 (74-99) mg/dL Calcium 9.2 (8.4-10.2) mg/dL Total Bilirubin 0.2 (0.2-1.3) mg/dL AST 20 (14-36) U/L ALT 14 (4-34) U/L Alkaline Phosphatase 39 (38-126) U/L Total Protein 7.1 (6.3-8.2) g/dL Albumin 4.3 (3.5-5.0) g/dL TSH 6.770 H (0.465-4.680) mIU/L Free T4 0.91 (0.78-2.19) ng/dL Free T3 pg/mL 4.3 (2.8-5.3) pg/ml Disposition Clinical Impression: Sore throat, Enlarged thyroid gland Disposition: HOME SELF-CARE Condition: Stable Instructions (If sedation given, give patient instructions): Hypothyroidism (ED) Additional Instructions: Follow-up with primary care. Return to emergency department if symptoms worsen. Is patient prescribed a controlled substance at d/c from ED?: No Referrals: Sara King MD [Primary Care Provider] - 1-2 days Time of Disposition: 20:51
--- NOTE | 2019-08-10 19:06 | XR ---
EXAMINATION TYPE: XR soft tissue neck DATE OF EXAM: 08/10/2019 COMPARISON: 04/19/2016 HISTORY: Swollen gland that throat TECHNIQUE: Soft tissue neck is performed in 2 views. FINDINGS: Epiglottis is normal. Hypopharynx is unremarkable. Advanced degenerative changes are throug h the visualized teeth. Prevertebral space is normal. There is soft tissue thickening in the pretracheal space at the level o f the thyroid. Mild AP diameter narrowing appears to be present. Some steepling is in the frontal pro jection. Degenerative disc changes are within the mid to lower cervical spine. IMPRESSION: 1. There appears to be superficial soft tissue swelling over the region of the thyroid which may has some mild anterior tracheal narrowing.
[2019-08-10] MEDS ORDERED: ACETAMINOPHEN TAB 500 MG TAB PO STA (19:16)
[2019-08-10] MEDS ORDERED: ALPRAZolam 0.25 MG TAB PO STA (19:27)
[2019-08-10 19:36] VITALS: RESP 18
[2019-08-10 19:49] LABS: Anisocytosis Slight; Basophils # (A) 0.1 k/uL (0-0.2); Basophils % (A) 1 %; Eosinophils # (A) 0.4 k/uL (0-0.7); Eosinophils % (A) 4 %; HCT 38.5 % (34.0-46.0); Lymphocytes # (A) 2.5 k/uL (1.0-4.8); Lymphocytes % (A) 24 %; MCH 25.8 pg (25.0-35.0); MCHC 31.2 g/dL (31.0-37.0); MCV 82.6 fL (80.0-100.0); Mean Platelet Volume 8.8; Monocytes # (A) 0.7 k/uL (0-1.0); Monocytes % (A) 7 %; Neutrophils # (A) 6.3 k/uL (1.3-7.7); Neutrophils % (A) 62 %; Platelet Count 297 k/uL (150-450); RBC 4.66 m/uL (3.80-5.40); RDW 16.4 % (11.5-15.5); WBC 10.2 k/uL (3.8-10.6)
[2019-08-10 20:00] LABS: ALT 14 U/L (4-34); AST 20 U/L (14-36); African American GFR (CKD) >90 (>60 ml/min/1.73 sqM); Albumin 4.3 g/dL (3.5-5.0); Alkaline Phosphatase 39 U/L (38-126); Anion Gap 7 mmol/L; Blood Urea Nitrogen 10 mg/dL (7-17); Calcium 9.2 mg/dL (8.4-10.2); Carbon Dioxide 26 mmol/L (22-30); Chloride 106 mmol/L (98-107); Glucose 99 mg/dL (74-99); Non-African American GFR(CKD) >90 (>60 ml/min/1.73 sqM); Potassium 4.7 mmol/L (3.5-5.1); Sodium 139 mmol/L (137-145); Total Bilirubin 0.2 mg/dL (0.2-1.3); Total Protein 7.1 g/dL (6.3-8.2)
--- NOTE | 2019-08-10 20:18 | CT ---
EXAMINATION TYPE: CT soft tissue neck w con DATE OF EXAM: 08/10/2019 COMPARISON: 05/25/2016 CT cervical spine HISTORY: Pain and difficulty swallowing. CT DLP: 275.4 mGycm CONTRAST: Patient injected with 100 mL of Isovue 300. TECHNIQUE: Axial images at 3 mm thick sections. Reconstructed images in the coronal plane and sagitt al plane are reviewed. FINDINGS: Limited CT sections are obtained the lung apices. The lung apices appear clear. CT neck: The torus tubarius and fossa of Rosenmuller are normal. Power System Operator spaces are normal. Para nasal sinuses and mastoid air cells are clear. Parotid glands appear normal and symmetrical. Submandibular glands, are normal. Parapharyngeal spac es are normal. No suspicious adenopathy is evident. The hypopharynx appears within normal limits. Vocal cord level appear symmetrical. The thyroid is enlarged. There is a large hypodensity within the left lobe thyroid. Thyroid extends i nto the superior mediastinum. This is displacing the trachea to the right may account for the apparen t findings on the chest x-ray. Thyroid: Isthmus 1.8 cm. Right lobe thyroid 6.4 x 3.0 x 3.1 cm with an irregular hypodensity within t his space. Left lobe thyroid 5.0 x 1.3 x 3.2 cm. No acute osseous abnormality is evident. Degenerative disc changes and loss of disc height with some anterior and posterior vertebral body spurring is noted. IMPRESSIONS: 1. Enlarged heterogenous thyroid. Additional workup can be performed with thyroid ultrasound on a non emergent basis. Thyroid cancer should be considered. 2. Soft tissue neck is otherwise unremarkable.
[2019-08-10 21:12] VITALS: BP 144/84; PULSE 86; TEMP 98
[2019-08-10 21:13] LABS: T4, Free (Free Thyroxine) 0.91 ng/dL (0.78-2.19)
== END 2019-08-10 21:00 | disposition home or self-care (01) ==
LOC: EC 17:39
DX: J02.9 Acute pharyngitis, unspecified (principal); E04.9 Nontoxic goiter, unspecified; R63.5 Abnormal weight gain; F17.200 Nicotine dependence, unspecified, uncomplicated; Z88.5 Allergy status to narcotic agent
CPT/HCPCS: 36415; 84439; 84481; 80053; 84443; 85025; 70360; 70491; 99285; Q9967

== ENCOUNTER → 2020-02-29 | Outpatient (CLI) | payer BC ==
--- NOTE | 2020-03-01 07:31 | US ---
EXAMINATION TYPE: US thyroid st tissue head/neck DATE OF EXAM: 02/29/2020 COMPARISON: CT, XR CLINICAL HISTORY: R22.0 Swelling mass. Swelling x 7 months. Trouble swallowing. Patient is on thyroi d medication but is unsure what kind. GLAND SIZE: Right Lobe: 5.2 x 1.6 x 2.0 cm Overall Parenchyma: heterogenous Left Lobe: 6.4 x 2.8 x 2.8 cm Overall Parenchyma: heterogeneous Isthmus Thickness: 0.89 cm NODULES RIGHT: # of nodules measured on right: 3 1. 1.0 X 0.8 x 0.7 cm isoechoic heterogeneous nodule at the upper pole with well-defined margins. This nodule is wider than tall and shows peripheral vascularity. Prior size: no prior 2. 1.0 X 0.9 x 0.8 cm isoechoic-hypoechoic heterogeneous nodule at the mid pole with poorly defined margins. This nodule is wider than tall and shows some intranodular and peripheral vascularity. Prior size: no prior 3. 2.4 X 1.6 x 1.2 cm spongiform nodule at the mid-lower pole with poorly defined margins;. This no dule is wider than tall and shows intranodular vascularity. Prior size: no prior LEFT: # of nodules measured on left: 2 1. 3.0 X 2.5 x 2.0 cm mixed nodule at the upper-mid pole with well-defined margins. This nodule is wider than tall and shows peripheral vascularity. Prior size: no prior 2. 3.4 X 2.6 x 3.0 cm solid heterogeneous nodule at the lower pole with well-defined margins. This nodule is taller than wide and shows intranodular vascularity. Prior size: no prior ISTHMUS: # of nodules measured in the isthmus: 2 1. 1.1 X 1.0 x 0.5 cm hypoechoic heterogeneous nodule at the mid pole with poorly defined margins. This nodule is wider than tall and shows peripheral vascularity. Prior size: no prior 2. 1.6 X 1.6 x 0.8 cm echogenic heterogeneous nodule at the lower pole with well-defined margins. This nodule is wider than tall and shows intranodular vascularity. Prior size: no prior Bilateral neck scanned, no evidence of lymphadenopathy. Heterogeneous enlarged multinodular thyroid is confirmed. Larger nodules left thyroid lobe. IMPRESSION: Most concerning nodule is dated 3.4 cm lower pole left thyroid nodule, TR 4 lesion. Neopl asm cannot be excluded. Sampling advised.
== END | disposition home or self-care (01) ==
LOC: RADUSWWP 16:40
PROVIDERS: ATTEND Internal Medicine
DX: E04.1 Nontoxic single thyroid nodule (principal); E07.89 Other specified disorders of thyroid
CPT/HCPCS: 76536

== ENCOUNTER 2020-05-07 05:05 | Emergency (ER) | payer BC ==
[2020-05-07 05:23] VITALS: BP 144/100; PULSE 104; RESP 18; TEMP 99.1
[2020-05-07] MEDS ORDERED: DIAZEPAM 5 MG/ML 2 ML INJ IVP STA (05:29)
[2020-05-07] MEDS ORDERED: KETOROLAC 15 MG/ML 1 ML VIAL IVP STA (05:29)
[2020-05-07 05:58] LABS: Anisocytosis Slight; Basophils # (A) 0.1 k/uL (0-0.2); Basophils % (A) 1 %; Eosinophils # (A) 0.6 k/uL (0-0.7); Eosinophils % (A) 5 %; HCT 36.7 % (34.0-46.0); Lymphocytes # (A) 2.9 k/uL (1.0-4.8); Lymphocytes % (A) 25 %; MCH 26.7 pg (25.0-35.0); MCHC 32.6 g/dL (31.0-37.0); MCV 81.9 fL (80.0-100.0); Mean Platelet Volume 7.9; Monocytes # (A) 0.6 k/uL (0-1.0); Monocytes % (A) 5 %; Neutrophils # (A) 7.5 k/uL (1.3-7.7); Neutrophils % (A) 63 %; Platelet Count 291 k/uL (150-450); RBC 4.48 m/uL (3.80-5.40); WBC 11.9 k/uL (3.8-10.6)
[2020-05-07 05:59] LABS: Appearance,Urine Clear (Clear); Bilirubin,Urine Negative (Negative); Color,Urine Light Yellow; Glucose,Urine (UA) Negative (Negative); Ketones,Urine Negative (Negative); PH, Urine 5.5 (5.0-8.0); Protein,Urine Negative (Negative); Specific Gravity,Urine 1.007 (1.001-1.035)
[2020-05-07 06:00] LABS: Blood,Urine Negative (Negative); Leukocyte Esterase,Urine Negative (Negative); Nitrite,Urine Negative (Negative); Urobilinogen,Urine <2.0 mg/dL (<2.0)
[2020-05-07 06:15] LABS: African American GFR (CKD) >90 (>60 ml/min/1.73 sqM); Anion Gap 6 mmol/L; Blood Urea Nitrogen 6 mg/dL (7-17); Calcium 9.2 mg/dL (8.4-10.2); Carbon Dioxide 25 mmol/L (22-30); Chloride 109 mmol/L (98-107); Glucose 101 mg/dL (74-99); Non-African American GFR(CKD) >90 (>60 ml/min/1.73 sqM); Potassium 3.8 mmol/L (3.5-5.1); Sodium 140 mmol/L (137-145)
--- NOTE | 2020-05-07 06:21 | XR ---
EXAMINATION TYPE: XR chest 2V DATE OF EXAM: 05/07/2020 COMPARISON: Chest x-ray November 24, 2017. CT chest November 10, 2015. HISTORY: Left-sided pain. TECHNIQUE: Frontal and lateral views of the chest are obtained. FINDINGS: There is no focal air space opacity, pleural effusion, or pneumothorax seen. The cardiac silhouette size is within normal limits. The osseous structures are intact. Cholecystectomy clips r edemonstrated on lateral view. IMPRESSION: No acute cardiopulmonary process. No significant change from most recent x-ray.
--- NOTE | 2020-05-07 06:51 | ED ---
Back Pain HPI - General Chief Complaint: Back Pain/Injury Stated Complaint: back pain Time Seen by Provider: 05/07/20 05:19 Source: patient Limitations: no limitations - History of Present Illness Initial Comments: This patient is a 39-year-old woman who presents to be evaluated for left mid back spasms. She states that they had come on a few days ago, but were tolerable. Over the course of this evening and tonight she states the spasms have been happening more frequently and are more severe in intensity. 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 She does not recall a specific injury. The patient denies any chest pain or dyspnea. No fever, chills, or cough. No abdominal pain. No change in urination or bowel movements. No change incontinence, saddle anesthesia, or radiation to the legs. MD Complaint: back pain -: days(s) Similar Symptoms Previously: Yes Place: home Radiation: none Severity: severe Quality: other (Spasms) Consistency: intermittent Improves With: immobilization Worsens With: movement Context: turning/twisting Associated Symptoms: denies other symptoms - Related Data Home Medications Medication Instructions Recorded Confirmed Ibuprofen [Motrin Ib] 400 mg PO Q6HR PRN 08/03/17 09/15/18 Acetaminophen/Pamabrom [Midol 2 tab PO Q6H PRN 09/15/18 09/15/18 Caplet] Phentermine HCl [Adipex-P] 37.5 mg PO DAILY PRN 09/15/18 09/15/18 Previous Rx's Medication Instructions Recorded Sulfamethox-Tmp 800-160Mg [Bactrim 1 each PO Q12HR #14 tab 09/15/18 Ds] Ibuprofen [Motrin] 600 mg PO Q8HR PRN #20 tab 05/07/20 Methocarbamol [Robaxin-750] 750 mg PO TID PRN #30 tablet 05/07/20 Allergies Allergy/AdvReac Type Severity Reaction Status Date / Time morphine Allergy Unknown Verified 05/07/20 05:15 Review of Systems ROS Statement: Those systems with pertinent positive or pertinent negative responses have been documented in the HPI. ROS Other: All systems not noted in ROS Statement are negative. Constitutional: Denies: fever, chills, weakness Respiratory: Denies: cough, dyspnea Cardiovascular: Denies: chest pain, edema Gastrointestinal: Denies: abdominal pain, vomiting, diarrhea Musculoskeletal: Reports: as per HPI, back pain Skin: Denies: rash Neurological: Denies: headache, weakness, numbness, paresthesias Past Medical History Past Medical History: Asthma, Thyroid Disorder History of Any Multi-Drug Resistant Organisms: None Reported Past Surgical History: Section, Tubal Ligation Past Anesthesia/Blood Transfusion Reactions: No Reported Reaction Past Psychological History: Depression Smoking Status: Current every day smoker Past Alcohol Use History: None Reported Past Drug Use History: None Reported General Exam Limitations: no limitations General appearance: alert, in no apparent distress Head exam: Present: atraumatic, normocephalic Eye exam: Present: normal appearance. Absent: scleral icterus, conjunctival injection Neck exam: Present: normal inspection, full ROM. Absent: tenderness Respiratory exam: Present: normal lung sounds bilaterally. Absent: respiratory distress, wheezes, rales, rhonchi, stridor Cardiovascular Exam: Present: regular rate, normal rhythm, normal heart sounds. Absent: systolic murmur, diastolic murmur, rubs, gallop GI/Abdominal exam: Present: soft. Absent: distended, tenderness, guarding, rebound, pulsatile mass Extremities exam: Present: normal inspection, normal capillary refill. Absent: pedal edema, calf tenderness Back exam: Present: tenderness, muscle spasm, paraspinal tenderness. Absent: CVA tenderness (R), CVA tenderness (L), vertebral tenderness Neurological exam: Present: alert, reflexes normal. Absent: motor sensory deficit Skin exam: Present: warm, dry, intact, normal color. Absent: rash Course Vital Signs 05/07/20 05:15 Temperature 99.1 F Pulse Rate 104 H Respiratory 18 Rate Blood Pressure 144/100 O2 Sat by Pulse 100 Oximetry Medical Decision Making - Medical Decision Making Patient is a 39-year-old woman with back spasms. The patient was observed to have spasm, and the muscle has increased tone and tenderness. She did have improvement with medication here. There are no red flag signs or symptoms. We discussed further care and follow-up as well as return parameters. - Lab Data Result diagrams: 05/07/20 05:47 05/07/20 05:47 Lab Results 05/07/20 05/07/20 05/07/20 Range/Units 05:47 05:47 05:47 WBC (3.8-10.6) k/uL RBC (3.80-5.40) m/uL Hgb (11.4-16.0) gm/dL Hct (34.0-46.0) % MCV (80.0-100.0) fL MCH (25.0-35.0) pg MCHC (31.0-37.0) g/dL RDW (11.5-15.5) % Plt Count (150-450) k/uL MPV Neutrophils % % Lymphocytes % % Monocytes % % Eosinophils % % Basophils % % Neutrophils # (1.3-7.7) k/uL Lymphocytes # (1.0-4.8) k/uL Monocytes # (0-1.0) k/uL Eosinophils # (0-0.7) k/uL Basophils # (0-0.2) k/uL Anisocytosis D-Dimer 0.19 (<0.60) mg/L FEU Sodium 140 (137-145) mmol/L Potassium 3.8 (3.5-5.1) mmol/L Chloride 109 H (98-107) mmol/L Carbon Dioxide 25 (22-30) mmol/L Anion Gap 6 mmol/L BUN 6 L (7-17) mg/dL Creatinine 0.62 (0.52-1.04) mg/dL Est GFR (CKD-EPI)AfAm >90 (>60 ml/min/1.73 sqM) Est GFR (CKD-EPI)NonAf >90 (>60 ml/min/1.73 sqM) Glucose 101 H (74-99) mg/dL Calcium 9.2 (8.4-10.2) mg/dL Troponin I (0.000-0.034) ng/mL Urine Color Light Yellow Urine Appearance Clear (Clear) Urine pH 5.5 (5.0-8.0) Ur Specific [place] 1.007 (1.001-1.035) Urine Protein Negative (Negative) Urine Glucose (UA) Negative (Negative) Urine Ketones Negative (Negative) Urine Blood Negative (Negative) Urine Nitrite Negative (Negative) Urine Bilirubin Negative (Negative) Urine Urobilinogen <2.0 (<2.0) mg/dL Ur Leukocyte Esterase Negative (Negative) 05/07/20 05/07/20 Range/Units 05:47 05:47 WBC 11.9 H (3.8-10.6) k/uL RBC 4.48 (3.80-5.40) m/uL Hgb 12.0 (11.4-16.0) gm/dL Hct 36.7 (34.0-46.0) % MCV 81.9 (80.0-100.0) fL MCH 26.7 (25.0-35.0) pg MCHC 32.6 (31.0-37.0) g/dL RDW 16.0 H (11.5-15.5) % Plt Count 291 (150-450) k/uL MPV 7.9 Neutrophils % 63 % Lymphocytes % 25 % Monocytes % 5 % Eosinophils % 5 % Basophils % 1 % Neutrophils # 7.5 (1.3-7.7) k/uL Lymphocytes # 2.9 (1.0-4.8) k/uL Monocytes # 0.6 (0-1.0) k/uL Eosinophils # 0.6 (0-0.7) k/uL Basophils # 0.1 (0-0.2) k/uL Anisocytosis Slight D-Dimer (<0.60) mg/L FEU Sodium (137-145) mmol/L Potassium (3.5-5.1) mmol/L Chloride (98-107) mmol/L Carbon Dioxide (22-30) mmol/L Anion Gap mmol/L BUN (7-17) mg/dL Creatinine (0.52-1.04) mg/dL Est GFR (CKD-EPI)AfAm (>60 ml/min/1.73 sqM) Est GFR (CKD-EPI)NonAf (>60 ml/min/1.73 sqM) Glucose (74-99) mg/dL Calcium (8.4-10.2) mg/dL Troponin I <0.012 (0.000-0.034) ng/mL Urine Color Urine Appearance (Clear) Urine pH (5.0-8.0) Ur Specific [place] (1.001-1.035) Urine Protein (Negative) Urine Glucose (UA) (Negative) Urine Ketones (Negative) Urine Blood (Negative) Urine Nitrite (Negative) Urine Bilirubin (Negative) Urine Urobilinogen (<2.0) mg/dL Ur Leukocyte Esterase (Negative) Disposition Clinical Impression: Back muscle spasm Disposition: HOME SELF-CARE Condition: Good Instructions (If sedation given, give patient instructions): Muscle Spasm (ED) Prescriptions: Ibuprofen [Motrin] 600 mg PO Q8HR PRN #20 tab PRN Reason: Pain Methocarbamol [Robaxin-750] 750 mg PO TID PRN #30 tablet PRN Reason: pain Is patient prescribed a controlled substance at d/c from ED?: No Referrals: Sara King MD [Primary Care Provider] - 1-2 days
== END 2020-05-07 07:15 | disposition home or self-care (01) ==
LOC: EC 05:05
DX: M62.830 Muscle spasm of back (principal); F17.200 Nicotine dependence, unspecified, uncomplicated; Z88.5 Allergy status to narcotic agent
CPT/HCPCS: 36415; 93005; 85379; 80048; 84484; 85025; 81003; 71046; 99284; 96374; 96375; J3360; J1885

== ENCOUNTER → 2020-10-02 | Outpatient (CLI) | payer BC ==
[2020-10-02 23:59] LABS: Calcium 8.8 mg/dL (8.7-10.3)
[2020-10-03 00:14] LABS: T4, Free (Free Thyroxine) 1.1 ng/dL (0.80-1.80)
== END | disposition home or self-care (01) ==
LOC: LABWHC1 12:38
PROVIDERS: ATTEND Internal Medicine
DX: E03.9 Hypothyroidism, unspecified (principal)
CPT/HCPCS: 36415; 82310; 84439; 84443

== ENCOUNTER 2020-11-24 13:22 | Emergency (ER) | payer BC ==
[2020-11-24 13:34] VITALS: BP 154/83; PULSE 81; RESP 18; TEMP 98.2
[2020-11-24] MEDS ORDERED: HYDROmorphone 1 MG/ML 1 ML SYRINGE IVP STA (13:44)
--- NOTE | 2020-11-24 13:47 | ED ---
General Adult HPI - General Chief complaint: Back Pain/Injury Stated complaint: Back Pain Time Seen by Provider: 11/24/20 13:38 Source: patient, RN notes reviewed Mode of arrival: ambulatory Limitations: physical limitation - History of Present Illness Initial comments: Patient is a pleasant 40-year-old female presenting to the emergency department with concerns of left-sided rib pain. Onset of symptoms was when she woke yesterday morning. Symptoms have persisted since that time. Discomfort is moderate to severe and does increase with deep breaths and position changes. Discomfort is somewhat sharp. Discomfort is mostly left lower posterior and lateral ribs. Discomfort has made patient lost his previously. It does hurt to take a deep breath however patient otherwise does not have dyspnea. No anterior chest pain. Patient did have similar symptoms a couple of weeks ago that improved on its own. No leg pain or leg swelling. - Related Data Home Medications Medication Instructions Recorded Confirmed Ibuprofen [Motrin Ib] 400 mg PO Q6HR PRN 08/03/17 09/15/18 Acetaminophen/Pamabrom [Midol 2 tab PO Q6H PRN 09/15/18 09/15/18 Caplet] Phentermine HCl [Adipex-P] 37.5 mg PO DAILY PRN 09/15/18 09/15/18 Previous Rx's Medication Instructions Recorded Sulfamethox-Tmp 800-160Mg [Bactrim 1 each PO Q12HR #14 tab 09/15/18 Ds] Ibuprofen [Motrin] 600 mg PO Q8HR PRN #20 tab 05/07/20 Methocarbamol [Robaxin-750] 750 mg PO TID PRN #30 tablet 05/07/20 Cyclobenzaprine [Flexeril] 10 mg PO TID PRN #12 tablet 11/24/20 Ibuprofen [Motrin] 600 mg PO Q6HR PRN #20 tab 11/24/20 Allergies Allergy/AdvReac Type Severity Reaction Status Date / Time morphine Allergy Unknown Verified 11/24/20 13:34 Review of Systems ROS Statement: Those systems with pertinent positive or pertinent negative responses have been documented in the HPI. ROS Other: All systems not noted in ROS Statement are negative. Constitutional: Denies: fever Eyes: Denies: eye pain ENT: Denies: ear pain Respiratory: Denies: cough, dyspnea Cardiovascular: Denies: chest pain Endocrine: Denies: fatigue Genitourinary: Denies: dysuria Musculoskeletal: Reports: as per HPI, back pain Skin: Denies: rash Neurological: Denies: weakness Past Medical History Past Medical History: Asthma, Thyroid Disorder History of Any Multi-Drug Resistant Organisms: None Reported Past Surgical History: Section, Tubal Ligation Past Anesthesia/Blood Transfusion Reactions: No Reported Reaction Past Psychological History: Depression Smoking Status: Current every day smoker Past Alcohol Use History: None Reported Past Drug Use History: None Reported General Exam Limitations: physical limitation General appearance: alert, in no apparent distress Head exam: Present: atraumatic Eye exam: Present: normal appearance Neck exam: Present: normal inspection Respiratory exam: Present: normal lung sounds bilaterally. Absent: chest wall tenderness Cardiovascular Exam: Present: regular rate, normal rhythm, normal heart sounds Expanded Peripheral pulses: 2+: Posterior Tibialis (R), Posterior Tibialis (L), Dorsalis Pedis (R), Dorsalis Pedis (L) GI/Abdominal exam: Present: soft. Absent: distended, tenderness Extremities exam: Present: normal inspection. Absent: pedal edema, calf tenderness Back exam: Present: tenderness (Patient does have tenderness left lower ribs around the ninth rib as well as laterally.) Neurological exam: Present: alert Psychiatric exam: Present: normal affect, normal mood Skin exam: Present: normal color Course Vital Signs 11/24/20 13:28 Temperature 98.2 F Pulse Rate 81 Respiratory 18 Rate Blood Pressure 154/83 O2 Sat by Pulse 99 Oximetry EKG Findings - EKG Comments: EKG Findings:: Normal sinus rhythm with rate of 69. [place] 118. QRS 86. QT 402. QTC 4:30. Normal axis. Normal QRS. No acute ST change. Medical Decision Making - Medical Decision Making Patient reevaluated and improved. Patient updated on results and need for follow-up. - Lab Data Result diagrams: 11/24/20 13:43 11/24/20 13:43 Lab Results 11/24/20 11/24/20 11/24/20 Range/Units 13:43 13:43 13:43 WBC 10.2 (3.8-10.6) k/uL RBC 4.19 (3.80-5.40) m/uL Hgb 11.8 (11.4-16.0) gm/dL Hct 35.0 (34.0-46.0) % MCV 83.6 (80.0-100.0) fL MCH 28.1 (25.0-35.0) pg MCHC 33.6 (31.0-37.0) g/dL RDW 17.4 H (11.5-15.5) % Plt Count 303 (150-450) k/uL MPV 7.9 Neutrophils % 67 % Lymphocytes % 20 % Monocytes % 6 % Eosinophils % 5 % Basophils % 1 % Neutrophils # 6.8 (1.3-7.7) k/uL Lymphocytes # 2.0 (1.0-4.8) k/uL Monocytes # 0.6 (0-1.0) k/uL Eosinophils # 0.5 (0-0.7) k/uL Basophils # 0.1 (0-0.2) k/uL Anisocytosis Slight PT 10.7 (9.0-12.0) sec INR 1.0 (<1.2) APTT 25.6 (22.0-30.0) sec D-Dimer 0.24 (<0.60) mg/L FEU Sodium 139 (137-145) mmol/L Potassium 3.8 (3.5-5.1) mmol/L Chloride 108 H (98-107) mmol/L Carbon Dioxide 25 (22-30) mmol/L Anion Gap 6 mmol/L BUN 9 (7-17) mg/dL Creatinine 0.66 (0.52-1.04) mg/dL Est GFR (CKD-EPI)AfAm >90 (>60 ml/min/1.73 sqM) Est GFR (CKD-EPI)NonAf >90 (>60 ml/min/1.73 sqM) Glucose 99 (74-99) mg/dL Calcium 9.1 (8.4-10.2) mg/dL Magnesium 1.7 (1.6-2.3) mg/dL Total Bilirubin 0.2 (0.2-1.3) mg/dL AST 20 (14-36) U/L ALT 10 (4-34) U/L Alkaline Phosphatase 47 (38-126) U/L Troponin I (0.000-0.034) ng/mL Total Protein 6.3 (6.3-8.2) g/dL Albumin 3.8 (3.5-5.0) g/dL 11/24/20 Range/Units 13:43 WBC (3.8-10.6) k/uL RBC (3.80-5.40) m/uL Hgb (11.4-16.0) gm/dL Hct (34.0-46.0) % MCV (80.0-100.0) fL MCH (25.0-35.0) pg MCHC (31.0-37.0) g/dL RDW (11.5-15.5) % Plt Count (150-450) k/uL MPV Neutrophils % % Lymphocytes % % Monocytes % % Eosinophils % % Basophils % % Neutrophils # (1.3-7.7) k/uL Lymphocytes # (1.0-4.8) k/uL Monocytes # (0-1.0) k/uL Eosinophils # (0-0.7) k/uL Basophils # (0-0.2) k/uL Anisocytosis PT (9.0-12.0) sec INR (<1.2) APTT (22.0-30.0) sec D-Dimer (<0.60) mg/L FEU Sodium (137-145) mmol/L Potassium (3.5-5.1) mmol/L Chloride (98-107) mmol/L Carbon Dioxide (22-30) mmol/L Anion Gap mmol/L BUN (7-17) mg/dL Creatinine (0.52-1.04) mg/dL Est GFR (CKD-EPI)AfAm (>60 ml/min/1.73 sqM) Est GFR (CKD-EPI)NonAf (>60 ml/min/1.73 sqM) Glucose (74-99) mg/dL Calcium (8.4-10.2) mg/dL Magnesium (1.6-2.3) mg/dL Total Bilirubin (0.2-1.3) mg/dL AST (14-36) U/L ALT (4-34) U/L Alkaline Phosphatase (38-126) U/L Troponin I <0.012 (0.000-0.034) ng/mL Total Protein (6.3-8.2) g/dL Albumin (3.5-5.0) g/dL - Radiology Data Radiology results: image reviewed (Chest x-ray shows no acute process) Disposition Clinical Impression: Thoracic back pain Disposition: HOME SELF-CARE Condition: Stable Instructions (If sedation given, give patient instructions): Muscle Strain (ED), Back Pain (ED) Additional Instructions: Please do follow-up with your primary care physician in the next couple of days for recheck. Return for difficulty breathing, worsening or change in pain, change in type of discomfort or area discomfort, worsening symptoms or other concerns. Prescriptions have been sent to pharmacy Prescriptions: Cyclobenzaprine [Flexeril] 10 mg PO TID PRN #12 tablet PRN Reason: Pain Ibuprofen [Motrin] 600 mg PO Q6HR PRN #20 tab PRN Reason: Pain Is patient prescribed a controlled substance at d/c from ED?: No Referrals: Sara King MD [Primary Care Provider] - 1-2 days Time of Disposition: 15:07
[2020-11-24 14:13] LABS: Anisocytosis Slight; Basophils # (A) 0.1 k/uL (0-0.2); Basophils % (A) 1 %; Eosinophils # (A) 0.5 k/uL (0-0.7); Eosinophils % (A) 5 %; HGB 11.8 gm/dL (11.4-16.0); Lymphocytes % (A) 20 %; MCH 28.1 pg (25.0-35.0); MCHC 33.6 g/dL (31.0-37.0); MCV 83.6 fL (80.0-100.0); Mean Platelet Volume 7.9; Monocytes # (A) 0.6 k/uL (0-1.0); Monocytes % (A) 6 %; Neutrophils # (A) 6.8 k/uL (1.3-7.7); Neutrophils % (A) 67 %; Platelet Count 303 k/uL (150-450); RBC 4.19 m/uL (3.80-5.40); RDW 17.4 % (11.5-15.5); WBC 10.2 k/uL (3.8-10.6)
[2020-11-24 14:27] LABS: ALT 10 U/L (4-34); AST 20 U/L (14-36); African American GFR (CKD) >90 (>60 ml/min/1.73 sqM); Albumin 3.8 g/dL (3.5-5.0); Alkaline Phosphatase 47 U/L (38-126); Anion Gap 6 mmol/L; Blood Urea Nitrogen 9 mg/dL (7-17); Calcium 9.1 mg/dL (8.4-10.2); Carbon Dioxide 25 mmol/L (22-30); Chloride 108 mmol/L (98-107); Glucose 99 mg/dL (74-99); Magnesium 1.7 mg/dL (1.6-2.3); Non-African American GFR(CKD) >90 (>60 ml/min/1.73 sqM); Potassium 3.8 mmol/L (3.5-5.1); Sodium 139 mmol/L (137-145); Total Bilirubin 0.2 mg/dL (0.2-1.3); Total Protein 6.3 g/dL (6.3-8.2)
--- NOTE | 2020-11-24 14:27 | XR ---
EXAMINATION TYPE: XR chest 2V DATE OF EXAM: 11/24/2020 COMPARISON: 05/07/2020 HISTORY: Left side chest pain TECHNIQUE: FINDINGS: Heart and mediastinum are normal. Lungs are clear. Diaphragm is normal. Bony thorax appears intact. Comment vascularity is normal. IMPRESSION: Normal chest. No change.
[2020-11-24 14:41] LABS: D-Dimer 0.24 mg/L FEU (<0.60); Partial Thromboplastin Time 25.6 sec (22.0-30.0); Prothrombin Time 10.7 sec (9.0-12.0)
== END 2020-11-24 15:25 | disposition home or self-care (01) ==
LOC: EC 13:22
DX: M54.6 Pain in thoracic spine (principal); R07.81 Pleurodynia; J45.909 Unspecified asthma, uncomplicated; F32.9 Major depressive disorder, single episode, unspecified; F17.200 Nicotine dependence, unspecified, uncomplicated; Z79.1 Long term (current) use of non-steroidal anti-inflammatories (NSAID)
CPT/HCPCS: 36415; 93005; 85379; 80053; 83735; 84484; 85025; 85610; 85730; 71046; 99284; 96374; J1170

== ENCOUNTER 2021-09-09 21:40 | Emergency (ER) | payer BC ==
--- NOTE | 2021-09-09 22:04 | XR ---
EXAMINATION TYPE: XR chest 2V DATE OF EXAM: 09/09/2021 10:00 PM COMPARISON: Chest radiographs from 11/24/2020. TECHNIQUE: XR chest 2V Frontal and lateral views of the chest. CLINICAL INDICATION:Female, 40 years old with history of cough; FINDINGS: Lungs/Pleura: There is no evidence of pleural effusion, focal consolidation, or pneumothorax. Pulmonary vascularity: Unremarkable. Heart/mediastinum: Cardiomediastinal silhouette is unremarkable. Musculoskeletal: No acute osseous pathology. IMPRESSION: No acute cardiopulmonary disease/process.
[2021-09-10] MEDS ORDERED: ALBUTEROL HFA INHALER INHALATION STA (00:33)
[2021-09-10] MEDS ORDERED: DEXAMETHASONE SOD PHOSPHATE 10 MG/ML 1 ML VIAL IM STA (00:34)
--- NOTE | 2021-09-10 00:39 | ED ---
General Adult HPI - General Chief complaint: Shortness of Breath Stated complaint: COVID+, Shortness of Breath Time Seen by Provider: 09/10/21 00:25 Source: patient, RN notes reviewed, old records reviewed Mode of arrival: ambulatory Limitations: no limitations - History of Present Illness Initial comments: This is a well-appearing 40-year-old female that presents ambulatory, in no acute distress with complaints of shortness of breath, wheezing and cough for 5 days. Patient states she was diagnosed with coronavirus last Thursday. She states that she did have pneumonia 3 weeks ago and finished her course of antibiotics and steroids at that time. Then she became infected with coronavirus. She states her whole family has the virus. She is a three-quarter pack-a-day smoker with a history of asthma, denies cardiac history. She describes pain in her chest as tight with a productive clear mucous cough. Denies any nausea, vomiting or diarrhea or fevers. -: days(s) (5) Location: chest Radiation: non-radiation Quality: other (tight) Consistency: constant Associated Symptoms: cough, shortness of breath Treatments Prior to Arrival: other (albuterol) - Related Data Home Medications Medication Instructions Recorded Confirmed Ibuprofen [Motrin Ib] 400 mg PO Q6HR PRN 08/03/17 09/15/18 Acetaminophen/Pamabrom [Midol 2 tab PO Q6H PRN 09/15/18 09/15/18 Caplet] Phentermine HCl [Adipex-P] 37.5 mg PO DAILY PRN 09/15/18 09/15/18 Previous Rx's Medication Instructions Recorded Sulfamethox-Tmp 800-160Mg [Bactrim 1 each PO Q12HR #14 tab 09/15/18 Ds] Ibuprofen [Motrin] 600 mg PO Q8HR PRN #20 tab 05/07/20 Methocarbamol [Robaxin-750] 750 mg PO TID PRN #30 tablet 05/07/20 Cyclobenzaprine [Flexeril] 10 mg PO TID PRN #12 tablet 11/24/20 Ibuprofen [Motrin] 600 mg PO Q6HR PRN #20 tab 11/24/20 Albuterol Inhaler [Ventolin Hfa 2 puff INHALATION RT-QID #8 gm 09/10/21 Inhaler] predniSONE 50 mg PO DAILY #5 tab 09/10/21 Allergies Allergy/AdvReac Type Severity Reaction Status Date / Time morphine Allergy Unknown Verified 11/24/20 13:34 Review of Systems ROS Statement: Those systems with pertinent positive or pertinent negative responses have been documented in the HPI. ROS Other: All systems not noted in ROS Statement are negative. Past Medical History Past Medical History: Asthma, Thyroid Disorder History of Any Multi-Drug Resistant Organisms: None Reported Past Surgical History: Section, Tubal Ligation Past Anesthesia/Blood Transfusion Reactions: No Reported Reaction Past Psychological History: Depression Smoking Status: Current every day smoker Past Alcohol Use History: None Reported Past Drug Use History: None Reported General Exam Limitations: no limitations General appearance: alert, in no apparent distress Head exam: Present: atraumatic, normocephalic Eye exam: Absent: scleral icterus, conjunctival injection ENT exam: Present: normal exam, normal oropharynx, mucous membranes moist Neck exam: Present: normal inspection, full ROM. Absent: tenderness, meningismus, lymphadenopathy Respiratory exam: Present: wheezes (Inspiratory and expiratory). Absent: respiratory distress, rales, rhonchi, stridor, accessory muscle use, decreased breath sounds Cardiovascular Exam: Present: regular rate, normal heart sounds GI/Abdominal exam: Present: soft. Absent: distended, tenderness, rigid Extremities exam: Present: normal capillary refill. Absent: pedal edema Back exam: Present: normal inspection. Absent: tenderness, CVA tenderness (R), CVA tenderness (L), rash noted Neurological exam: Present: alert, oriented X3, normal gait Psychiatric exam: Present: normal affect, normal mood Skin exam: Present: warm, dry, intact, normal color. Absent: cyanosis, diaphoretic, petechiae, pallor Course Vital Signs 09/09/21 09/10/21 09/10/21 21:49 00:39 00:56 Temperature 98.8 F Pulse Rate 89 68 Respiratory 18 18 18 Rate Blood Pressure 150/79 O2 Sat by Pulse 98 96 Oximetry 09/10/21 01:13 Temperature 98.7 F Pulse Rate 66 Respiratory 16 Rate Blood Pressure 128/91 O2 Sat by Pulse 98 Oximetry EKG Findings - EKG Results: EKG: sinus rhythm (Ventricular rate of 70, DE interval 0.128, QRS 0.87, QTC 0.421) Medical Decision Making - Medical Decision Making Patient presents with complaints of wheezing and cough diagnosed with coronavirus 5 days ago. She was given a shot of Decadron and albuterol inhaler. EKG shows sinus rhythm, chest x-ray is clear. Upon reassessment patient's lung sounds are clear to auscultation. She was given a prescription for prednisone for 5 days in addition to an albuterol inhaler as she states she was almost out. She was instructed to stop smoking and follow-up with her primary care doctor this week. Return to the emergency room if any new concerning symptoms. Patient is agreeable to this plan of care. Disposition Clinical Impression: Asthma Disposition: HOME SELF-CARE Condition: Good Instructions (If sedation given, give patient instructions): Asthma (ED) Additional Instructions: Use your albuterol inhaler, 2 puffs every 4-6 hours as needed. Use the prednisone as prescribed for the next 5 days. Increase your fluid intake. Return to the emergency room with any new or concerning symptoms including worsening shortness of breath or chest pains. Follow-up with your primary care doctor this week. Prescriptions: predniSONE 50 mg PO DAILY #5 tab Albuterol Inhaler [Ventolin Hfa Inhaler] 2 puff INHALATION RT-QID #8 gm Is patient prescribed a controlled substance at d/c from ED?: No Referrals: Sara King MD [Primary Care Provider] - 1-2 days
[2021-09-10 01:15] VITALS: BP 128/91; PULSE 66; RESP 16; TEMP 98.7
== END 2021-09-10 01:15 | disposition home or self-care (01) ==
LOC: EC 21:40
DX: J45.909 Unspecified asthma, uncomplicated (principal); F17.200 Nicotine dependence, unspecified, uncomplicated; Z20.822 Contact with and (suspected) exposure to COVID-19; Z88.5 Allergy status to narcotic agent
CPT/HCPCS: 94640 ×2; 93005; 71046; 99285; 96372; J1100

== ENCOUNTER → 2021-11-12 | Outpatient (CLI) | payer BC ==
[2021-11-12 18:31] LABS: Calcium 8.7 mg/dL (8.7-10.3); T4, Free (Free Thyroxine) 1.31 ng/dL (0.800-1.800)
== END | disposition home or self-care (01) ==
LOC: LABWHC1 14:21
PROVIDERS: ATTEND Internal Medicine
DX: E03.9 Hypothyroidism, unspecified (principal)
CPT/HCPCS: 36415; 82310; 83970; 84439; 84443

== ENCOUNTER 2022-10-16 15:08 | Emergency (ER) | payer BC ==
[2022-10-16] MEDS ORDERED: SODIUM CHLORIDE 0.9% 1,000 ML IV STA (15:17)
[2022-10-16] MEDS ORDERED: MECLIZINE 12.5 MG TAB PO STA (15:36)
[2022-10-16 16:07] VITALS: RESP 18; TEMP 98.2
[2022-10-16 16:19] LABS: Appearance,Urine Clear (Clear); Bilirubin,Urine Negative (Negative); Blood,Urine Negative (Negative); Color,Urine Colorless; Glucose,Urine (UA) Negative (Negative); Ketones,Urine Negative (Negative); Leukocyte Esterase,Urine Negative (Negative); Nitrite,Urine Negative (Negative); Protein,Urine Negative (Negative); Specific Gravity,Urine 1.002 (1.001-1.035); Urobilinogen,Urine <2.0 mg/dL (<2.0)
[2022-10-16 16:21] LABS: Basophils # (A) 0.1 k/uL (0-0.2); Basophils % (A) 1 %; Eosinophils # (A) 0.4 k/uL (0-0.7); Eosinophils % (A) 4 %; HCT 34.1 % (34.0-46.0); HGB 10.8 gm/dL (11.4-16.0); Hypochromasia Slight; Lymphocytes # (A) 2.2 k/uL (1.0-4.8); Lymphocytes % (A) 26 %; MCHC 31.7 g/dL (31.0-37.0); MCV 81.9 fL (80.0-100.0); Mean Platelet Volume 8.9; Monocytes # (A) 0.5 k/uL (0-1.0); Monocytes % (A) 6 %; Neutrophils # (A) 5.1 k/uL (1.3-7.7); Neutrophils % (A) 61 %; Platelet Count 292 k/uL (150-450); RBC 4.16 m/uL (3.80-5.40); RDW 15.8 % (11.5-15.5); WBC 8.4 k/uL (3.8-10.6)
[2022-10-16 16:30] LABS: ALT 17 U/L (4-34); AST 20 U/L (14-36); African American GFR (CKD) >90 (>60 ml/min/1.73 sqM); Albumin 3.9 g/dL (3.5-5.0); Alkaline Phosphatase 35 U/L (38-126); Anion Gap 8 mmol/L; Blood Urea Nitrogen 7 mg/dL (7-17); Calcium 8.6 mg/dL (8.4-10.2); Carbon Dioxide 26 mmol/L (22-30); Chloride 105 mmol/L (98-107); Glucose 96 mg/dL (74-99); Magnesium 1.9 mg/dL (1.6-2.3); Non-African American GFR(CKD) >90 (>60 ml/min/1.73 sqM); Potassium 3.8 mmol/L (3.5-5.1); Sodium 139 mmol/L (137-145); Total Bilirubin 0.2 mg/dL (0.2-1.3); Total Protein 6.5 g/dL (6.3-8.2)
[2022-10-16 16:34] LABS: Partial Thromboplastin Time 24.1 sec (22.0-30.0); Prothrombin Time 10.3 sec (9.0-12.0)
--- NOTE | 2022-10-16 17:34 | ED ---
Dizziness HPI - General Chief Complaint: Dizziness Stated Complaint: Dizziness Time Seen by Provider: 10/16/22 15:16 Source: patient Mode of arrival: ambulatory Limitations: no limitations - History of Present Illness Initial Comments: Patient is a 42-year-old female presents to the emergency department for dizziness. She has felt lightheaded and off balance for the past 2 days. 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 Denies recent falls, head trauma. She denies headache, fever, chills. She denies abdominal pain, nausea, vomiting. Patient has history of thyroid removal. She denies chest pain, palpitations, shortness of breath. - Related Data Home Medications Medication Instructions Recorded Confirmed Albuterol Inhaler [Ventolin Hfa 2 puff INHALATION RT-Q4H PRN 10/16/22 10/16/22 Inhaler] Levothyroxine Sodium [Synthroid] 150 mcg PO DAILY 10/16/22 10/16/22 Omeprazole 40 mg PO DAILY PRN 10/16/22 10/16/22 Allergies Allergy/AdvReac Type Severity Reaction Status Date / Time morphine AdvReac Nausea & Verified 10/16/22 16:02 Vomiting Review of Systems ROS Statement: Those systems with pertinent positive or pertinent negative responses have been documented in the HPI. ROS Other: All systems not noted in ROS Statement are negative. Past Medical History Past Medical History: Asthma, Thyroid Disorder History of Any Multi-Drug Resistant Organisms: None Reported Past Surgical History: Section, Tubal Ligation Past Anesthesia/Blood Transfusion Reactions: No Reported Reaction Past Psychological History: Depression Smoking Status: Current every day smoker Past Alcohol Use History: None Reported Past Drug Use History: None Reported General Exam Limitations: no limitations General appearance: alert, in no apparent distress Head exam: Present: atraumatic, normocephalic, normal inspection Eye exam: Present: normal appearance, PERRL, EOMI. Absent: scleral icterus, conjunctival injection, periorbital swelling ENT exam: Present: normal exam, mucous membranes dry, mucous membranes moist Neck exam: Present: normal inspection. Absent: tenderness, meningismus, lymphadenopathy Respiratory exam: Present: normal lung sounds bilaterally. Absent: respiratory distress, wheezes, rales, rhonchi, stridor Cardiovascular Exam: Present: regular rate, normal rhythm, normal heart sounds. Absent: systolic murmur, diastolic murmur, rubs, gallop, clicks GI/Abdominal exam: Present: soft, normal bowel sounds. Absent: distended, tenderness, guarding, rebound, rigid Neurological exam: Present: alert, oriented X3, CN II-XII intact Expanded Cranial nerves: EOM's Intact: Normal, Facial Sensation: Normal, Facial Palsy with Forehead Movement: Normal Cerebellar function: Finger to Nose: Normal, Heel to [place]: Normal Sensory exam: Upper Extremity Light Touch: Normal, Lower Extremity Light Touch: Normal Motor strength exam: RUE: 5, LUE: 5, RLE: 5, LLE: 5 Psychiatric exam: Present: normal affect, normal mood Skin exam: Present: warm, dry, intact, normal color. Absent: rash Course Vital Signs 10/16/22 10/16/22 10/16/22 15:11 16:01 19:00 Temperature 98.3 F 98.2 F Pulse Rate 80 64 Pulse Rate [ 66 Right Radial] Respiratory 20 18 18 Rate Blood Pressure 150/106 147/90 Blood Pressure 139/79 [Right Arm Sitting] Blood Pressure 144/80 [Right Arm Standing] Blood Pressure 138/70 [Right Arm Supine] O2 Sat by Pulse 99 98 99 Oximetry Medical Decision Making - Medical Decision Making EKG taken at 15:46, interpreted by myself Normal sinus rhythm with sinus arrhythmia Ventricular rate 63, AK interval 122, QRS duration 88, QTC 435 Was pt. sent in by a medical professional or institution ([facility] Roy, EVENT SET UP SPECIALIST, urgent care, hospital, or skilled nursing...) When possible be specific @ -No Did you speak to anyone other than the patient for history (EMS, parent, family, police, friend...)? What history was obtained from this source @ -No Did you review nursing and triage notes (agree or disagree)? Why? @ -I reviewed and agree with nursing and triage notes Were old charts reviewed (outside hosp., previous admission, EMS record, old EKG, old radiological studies, urgent care reports/EKG's, skilled nursing records)? Report findings @ -No old charts were reviewed Differential Diagnosis (chest pain, altered mental status, abdominal pain women, abdominal pain men, vaginal bleeding, weakness, fever, dyspnea, syncope, headache, dizziness, GI bleed, back pain, seizure, CVA, palpatations, mental health)? @ -Differential Dizziness: Benign paroxysmal positional Vertigo, Menieres disease, otitis media, acoustic neuroma, vertebrobasilar insufficiency, cerebellar stroke, encephalitis, hypovolemic, arrhythmia, coronary artery syndrome, anemia, this is not meant to be an all-inclusive list EKG interpreted by me (3pts min.). @ -As above X-rays interpreted by me (1pt min.). @ -No acute cardiopulmonary process CT interpreted by me (1pt min.). @ -No intracranial process U/S interpreted by me (1pt. min.). @ -None done What testing was considered but not performed or refused? (CT, X-rays, U/S, l abs)? Why? @ -None What meds were considered but not given or refused? Why? @ -None Did you discuss the management of the patient with other professionals (professionals i.e. , PA, EVENT SET UP SPECIALIST, lab, RT, psych nurse, social services designee, content writer, teacher, tourist information officer, director case)? Give summary @ -No Was smoking cessation discussed for >3mins.? @ -No Was critical care preformed (if so, how long)? @ -No Were there social determinants of health that impacted care today? How? (Homelessness, low income, unemployed, alcoholism, drug addiction, transportation, low edu. Level, literacy, decrease access to med. care, correction, rehab)? @ -No Was there de-escalation of care discussed even if they declined (Discuss DNR or withdrawal of care, Hospice)? DNR status @ -No What co-morbidities impacted this encounter? (DM, HTN, Smoking, COPD, CAD, Cance r, CVA, ARF, Chemo, Hep., AIDS, mental health diagnosis, sleep apnea, morbid obesity)? @ -None Was patient admitted / discharged? Hospital course, mention meds given and route, prescriptions, significant lab abnormalities, going to OR and other pertinent info. @ -Patient presenting for lightheadedness and off balance feeling. No chest pain or shortness of breath. No neurological deficit on exam. Orthostatics negative. Laboratory studies obtained. Hemoglobin is low at 10.8, baseline around 12-13. Patient denies abnormal bleeding, blood in stool. Other laboratory studies were relatively unremarkable. Patient given Antivert with no improvement. CT of the brain was then obtained which ruled out intracranial process. Results discussed with patient. At this time there are no diagnostic studies to explain patient's symptoms. Possibly related to anemia. Patient to follow-up with primary care provider we did discuss return parameters. Undiagnosed new problem with uncertain prognosis? @ -No Drug Therapy requiring intensive monitoring for toxicity (Heparin, Nitro, In sulin, Cardizem)? @ -No Were any procedures done? @ -No Diagnosis/symptom? @ Anemia, lightheadedness, unsteadiness Acute, or Chronic, or Acute on Chronic? @ Acute Uncomplicated (without systemic symptoms) or Complicated (systemic symptoms)? @ -[Uncomplicated Side effects of treatment? @ -No Exacerbation, Progression, or Severe Exacerbation? @ -No Poses a threat to life or bodily function? How? (Chest pain, [place], [place], pneumonia, PE, COPD, DKA, ARF, appy, cholecystitis, CVA, Diverticulitis, Homicidal, Suicidal, threat to staff... and all critical care pts) @ -No Dr. Lr is my attending - Lab Data Result diagrams: 10/16/22 16:02 10/16/22 16:02 Lab Results 10/16/22 10/16/22 10/16/22 Range/Units 16:02 16:02 16:02 WBC 8.4 (3.8-10.6) k/uL RBC 4.16 (3.80-5.40) m/uL Hgb 10.8 L (11.4-16.0) gm/dL Hct 34.1 (34.0-46.0) % MCV 81.9 (80.0-100.0) fL MCH 26.0 (25.0-35.0) pg MCHC 31.7 (31.0-37.0) g/dL RDW 15.8 H (11.5-15.5) % Plt Count 292 (150-450) k/uL MPV 8.9 Neutrophils % 61 % Lymphocytes % 26 % Monocytes % 6 % Eosinophils % 4 % Basophils % 1 % Neutrophils # 5.1 (1.3-7.7) k/uL Lymphocytes # 2.2 (1.0-4.8) k/uL Monocytes # 0.5 (0-1.0) k/uL Eosinophils # 0.4 (0-0.7) k/uL Basophils # 0.1 (0-0.2) k/uL Hypochromasia Slight PT (9.0-12.0) sec INR (<1.2) APTT (22.0-30.0) sec Sodium 139 (137-145) mmol/L Potassium 3.8 (3.5-5.1) mmol/L Chloride 105 (98-107) mmol/L Carbon Dioxide 26 (22-30) mmol/L Anion Gap 8 mmol/L BUN 7 (7-17) mg/dL Creatinine 0.72 (0.52-1.04) mg/dL Est GFR (CKD-EPI)AfAm >90 (>60 ml/min/1.73 sqM) Est GFR (CKD-EPI)NonAf >90 (>60 ml/min/1.73 sqM) Glucose 96 (74-99) mg/dL Calcium 8.6 (8.4-10.2) mg/dL Magnesium 1.9 (1.6-2.3) mg/dL Total Bilirubin 0.2 (0.2-1.3) mg/dL AST 20 (14-36) U/L ALT 17 (4-34) U/L Alkaline Phosphatase 35 L (38-126) U/L Troponin I (0.000-0.034) ng/mL Total Protein 6.5 (6.3-8.2) g/dL Albumin 3.9 (3.5-5.0) g/dL Urine Color Colorless Urine Appearance Clear (Clear) Urine pH 6.0 (5.0-8.0) Ur Specific [place] 1.002 (1.001-1.035) Urine Protein Negative (Negative) Urine Glucose (UA) Negative (Negative) Urine Ketones Negative (Negative) Urine Blood Negative (Negative) Urine Nitrite Negative (Negative) Urine Bilirubin Negative (Negative) Urine Urobilinogen <2.0 (<2.0) mg/dL Ur Leukocyte Esterase Negative (Negative) 10/16/22 10/16/22 Range/Units 16:02 16:02 WBC (3.8-10.6) k/uL RBC (3.80-5.40) m/uL Hgb (11.4-16.0) gm/dL Hct (34.0-46.0) % MCV (80.0-100.0) fL MCH (25.0-35.0) pg MCHC (31.0-37.0) g/dL RDW (11.5-15.5) % Plt Count (150-450) k/uL MPV Neutrophils % % Lymphocytes % % Monocytes % % Eosinophils % % Basophils % % Neutrophils # (1.3-7.7) k/uL Lymphocytes # (1.0-4.8) k/uL Monocytes # (0-1.0) k/uL Eosinophils # (0-0.7) k/uL Basophils # (0-0.2) k/uL Hypochromasia PT 10.3 (9.0-12.0) sec INR 1.0 (<1.2) APTT 24.1 (22.0-30.0) sec Sodium (137-145) mmol/L Potassium (3.5-5.1) mmol/L Chloride (98-107) mmol/L Carbon Dioxide (22-30) mmol/L Anion Gap mmol/L BUN (7-17) mg/dL Creatinine (0.52-1.04) mg/dL Est GFR (CKD-EPI)AfAm (>60 ml/min/1.73 sqM) Est GFR (CKD-EPI)NonAf (>60 ml/min/1.73 sqM) Glucose (74-99) mg/dL Calcium (8.4-10.2) mg/dL Magnesium (1.6-2.3) mg/dL Total Bilirubin (0.2-1.3) mg/dL AST (14-36) U/L ALT (4-34) U/L Alkaline Phosphatase (38-126) U/L Troponin I <0.012 (0.000-0.034) ng/mL Total Protein (6.3-8.2) g/dL Albumin (3.5-5.0) g/dL Urine Color Urine Appearance (Clear) Urine pH (5.0-8.0) Ur Specific [place] (1.001-1.035) Urine Protein (Negative) Urine Glucose (UA) (Negative) Urine Ketones (Negative) Urine Blood (Negative) Urine Nitrite (Negative) Urine Bilirubin (Negative) Urine Urobilinogen (<2.0) mg/dL Ur Leukocyte Esterase (Negative) Disposition Clinical Impression: Lightheadedness, Unsteadiness, Anemia Disposition: HOME SELF-CARE Condition: Good Instructions (If sedation given, give patient instructions): Dizziness (ED) Additional Instructions: Follow-up with neurology and primary care provider in one to 2 days. Return to the emergency department if you experience new, concerning, or worsening symptoms. Is patient prescribed a controlled substance at d/c from ED?: No Referrals: None,Stated [Primary Care Provider] - 1-2 days Сергей Adams MD [STAFF PHYSICIAN] - 1-2 days
--- NOTE | 2022-10-16 17:37 | CT ---
EXAMINATION TYPE: CT brain wo con CT DLP: 1111.4 mGycm, Automated exposure control for dose reduction was used. DATE OF EXAM: 10/16/2022 5:23 PM COMPARISON: None. CLINICAL INDICATION:Female, 42 years old with history of lightheadedness off balance, Dizziness, off balance TECHNIQUE: Brain: Axial CT images of the brain were obtained with coronal and sagittal reformats created and rev iewed. Contrast used: None. Oral contrast used: None. FINDINGS: Brain: Extra-axial spaces: No abnormal extra-axial fluid collections. Ventricular system: Within normal limits Cerebral parenchyma: No acute intraparenchymal hemorrhage or mass effect. The russell-white junction is well differentiated. Cerebellum: Unremarkable. Mass effect: No evidence of midline shift. Intracranial vasculature: unremarkable Soft tissues: Normal. Calvarium/osseous structures: No depressed skull fracture. Paranasal sinuses and mastoid air cells: Mild scattered paranasal sinus disease. Visualized orbits: Orbital contents are intact. IMPRESSION: No acute intracranial process.
--- NOTE | 2022-10-16 18:10 | XR ---
EXAMINATION TYPE: XR chest 2V DATE OF EXAM: 10/16/2022 5:40 PM COMPARISON: 09/09/2021 TECHNIQUE: XR chest 2V Frontal and lateral views of the chest. CLINICAL INDICATION:Female, 42 years old with history of dizziness; FINDINGS: Lungs/Pleura: There is no evidence of pleural effusion, focal consolidation, or pneumothorax. Pulmonary vascularity: Unremarkable. Heart/mediastinum: Cardiomediastinal silhouette is unremarkable. Musculoskeletal: No acute osseous pathology. IMPRESSION: No acute cardiopulmonary disease/process.
[2022-10-16 19:00] VITALS: BP 147/90; PULSE 64
== END 2022-10-16 19:01 | disposition home or self-care (01) ==
LOC: EC 15:08
DX: R42 Dizziness and giddiness (principal); R26.81 Unsteadiness on feet; D64.9 Anemia, unspecified; J45.909 Unspecified asthma, uncomplicated; E07.9 Disorder of thyroid, unspecified; F32.A Depression, unspecified; F17.200 Nicotine dependence, unspecified, uncomplicated; Z88.5 Allergy status to narcotic agent; Z79.890 Hormone replacement therapy; Z79.899 Other long term (current) drug therapy
CPT/HCPCS: 36415; 70450; 71046; 80053; 81003; 83735; 84484; 85025; 85610; 85730; 93005; 96360; 96361; 99284

== ENCOUNTER 2024-01-08 11:21 | Emergency (ER) | payer BC ==
[2024-01-08 11:27] VITALS: BP 138/82; PULSE 80; RESP 16; TEMP 97.8
== END 2024-01-08 12:08 | disposition left against medical advice (07) ==
LOC: EC 11:21
DX: Z53.21 Procedure and treatment not carried out due to patient leaving prior to being seen by health care provider (principal)
CPT/HCPCS: 93005; 99499

== ENCOUNTER → 2024-02-04 | Outpatient (CLI) | payer BC ==
[2024-02-05 03:46] LABS: T4, Free (Free Thyroxine) 1.37 ng/dL (0.80-1.80)
[2024-02-05 05:36] LABS: Gliadin AB IgA, Deaminated Negative (Negative); Gliadin AB IgA, Unit 1.1 U/mL; Gliadin AB IgG, Deaminated Negative (Negative); Gliadin AB IgG, Unit <0.4 U/mL
== END | disposition home or self-care (01) ==
LOC: LABWHC1 15:41
PROVIDERS: ATTEND Nurse Practitioner Family
DX: R19.4 Change in bowel habit (principal)
CPT/HCPCS: 36415; 83516; 84439; 84443; 85652; 86140